=== PATIENT | female | born 1950 | race American Indian/Alaskan Native ===

== ENCOUNTER → 2016-12-29 | Outpatient (CLI) | payer MEDICARE, OTHER ==
[~2016-12-29] MED LIST: Iopamidol 755 MG/ML 500 ML Multipack Bottle IVPUSH STA
--- NOTE | 2016-12-31 09:32 | CT ---
CT of the abdomen and pelvis with and without contrast. HISTORY: Pain TECHNIQUE: Axial CT images were obtained of the abdomen and pelvis before and following administrati on of 100 mL of Isovue-370 in the right antecubital fossa without complication. Coronal and sagittal reconstructions obtained. FINDINGS: There is atelectasis/scarring within the lung bases. No pleural effusion. The liver, spleen, adrenal glands, and pancreas appear normal. There is no bulky retroperitoneal lym phadenopathy or abdominal ascites. The gallbladder appears normal. The kidneys enhance and function symmetrically without evidence of obstructive uropathy. The small bowel is normal in caliber without evidence of obstruction. There is focal colonic wall th ickening and stranding within the sigmoid colon with a few adjacent diverticula. Urinary bladder johnny ears normal. Appendectomy. No pelvic lymphadenopathy or free pelvic fluid. Mild degenerative changes within the lower lumbar spine. Suspicious osseous abnormalities. IMPRESSION: 1. Stranding and wall thickening involving the sigmoid colon, likely representing diverticulitis. Gi mary jo the degree of wall thickening relative to the adjacent stranding a neoplastic process is not exc luded, follow-up with a colonoscopy may be beneficial.
--- NOTE | 2016-12-31 15:57 | CT ---
EXAMINATION: CT soft tissue neck without contrast HISTORY: History of throat cancer COMPARISON: None TECHNIQUE: Axial CT images obtained through the neck without contrast. Coronal and sagittal reconstr uctions obtained. FINDINGS: The visualized mastoid air cells and paranasal sinuses are clear. The nasopharynx and orop harynx appear grossly symmetric. The hypopharynx appears unremarkable for noncontrast examination. T here is no bulky cervical lymphadenopathy. The parotid and submandibular glands are symmetric. The t hyroid gland appears unremarkable. No overt mass or asymmetry identified. Mild degenerative changes noted within the mid cervical spine. No suspicious osseous abnormalities. The lung apices are clear. IMPRESSION: No mass or asymmetry identified.
== END ==
LOC: MW.DI 15:18
PROVIDERS: ATTEND Family Medicine
DX: R10.9 Unspecified abdominal pain (principal); R07.0 Pain in throat; K63.89 Other specified diseases of intestine; Z80.8 Family history of malignant neoplasm of other organs or systems
CPT/HCPCS: 70490; 74178; Q9967

== ENCOUNTER 2017-02-13 06:23 | Day surgery (SDC) | payer MEDICARE, OTHER ==
[~2017-02-13 06:23] MED LIST changes: -Iopamidol 755 MG/ML 500 ML Multipack Bottle IVPUSH STA; +Lactated Ringers 1,000 ML IV SCH
--- NOTE | 2017-02-13 07:02 | PCM.PREANE ---
Preanesthetic Assessment - Anesthesia/Transfusion/Family Hx Anesthesia History: Prior Anesthesia Without Reaction Family History of Anesthesia Reaction: No Transfusion History: No Prior Transfusion(s) Intubation History: Unknown - Review of Systems General: No Symptoms Pulmonary: No Symptoms Cardiovascular: No Symptoms Gastrointestinal: Abdominal pain Neurological: No Symptoms Other: Reports: None - Physical Assessment O2 Sat by Pulse Oximetry: 97 Respiratory Rate: 16 Vital Signs: Last Vital Signs Temp 36.2 C 02/13/17 06:30 Pulse 90 02/13/17 06:30 Resp 16 02/13/17 06:30 BP 152/70 H 02/13/17 06:30 Pulse Ox 97 02/13/17 06:30 Height: 1.47 m Weight: 59.874 kg ASA Class: 3 Mental Status: Alert & Oriented x3 Airway Class: Mallampati = 2 Dentition: Reports: Partial (upper front- four teeth) Thyro-Mental Finger Breadths: 2 Mouth Opening Finger Breadths: 3 ROM/Head Extension: Full Lungs: Clear to auscultation, Normal respiratory effort Cardiovascular: Regular Rate, Regular Rhythm - Allergies Allergies/Adverse Reactions: Allergies Allergy/AdvReac Type Severity Reaction Status Date / Time adhesive tape Allergy Rash Verified 02/11/17 12:21 erythromycin base Allergy Anaphylactic Verified 02/11/17 12:21 Shock hydroxychloroquine Allergy Anaphylactic Verified 02/11/17 12:21 Shock lisinopril Allergy Cough Verified 02/11/17 12:21 - Blood Blood Available: No - Anesthesia Plan Pre-Op Medication Ordered: None - Acknowledgements Anesthesia Type Planned: MAC Pt an Appropriate Candidate for the Planned Anesthesia: Yes Alternatives and Risks of Anesthesia Discussed w Pt/Guardian: Yes Pt/Guardian Understands and Agrees with Anesthesia Plan: Yes PreAnesthesia Questionnaire HEENT History: Reports: Other (See Below) Other HEENT History: wears glasses, has top partial Cardiovascular History: Reports: Heart Failure (4-5 years ago, ok since), High Cholesterol, Hypertension, [place] (patient denies) Gastrointestinal History: Reports: GERD, Other (See Below) (h/o pancreatitis) 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: Musculoskeletal History: Reports: Back Pain, Chronic, RA Neurological History: Reports: Migraines, Other (See Below) (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)) Psychiatric History: Reports: Anxiety, Depression Endocrine/Metabolic History: Reports: Diabetes, Type II Other Endocrine/Metabolic History: diet controlled type II diabetes Oncologic (Cancer) History: Reports: Breast - Past Surgical History Head Surgeries/Procedures: Reports: None Female Surgical History: Reports: Breast Biopsy, Section (x3), Hysterectomy Other Female Surgeries/Procedures: hx exploratory laparotomy, exc lymph nodes left breast - SUBSTANCE USE Smoking Status *Q: Former Smoker (quit 27 years ago) Tobacco Use Within Last Twelve Months: No Recreational Drug Use History: No - HOME MEDS Home Medications: Home Meds Aspirin [[place] Aspirin] 81 mg PO DAILY 02/11/17 [History] Carvedilol 6.25 mg PO BID 02/11/17 [History] Estradiol [Vagifem] 20 mcg VAG ASDIRECTED 02/11/17 [History] Folic Acid 1 mg PO DAILY 02/11/17 [History] Furosemide 20 mg PO DAILY 02/11/17 [History] Leflunomide 20 mg PO DAILY 02/11/17 [History] Losartan [Cozaar] 25 mg PO DAILY 02/11/17 [History] Methotrexate 4 tab PO WEEKLY 02/11/17 [History] Multivitamin [Multivitamins] 1 tab PO DAILY 02/11/17 [History] Omeprazole 40 mg PO DAILY 02/11/17 [History] Pravastatin [Pravachol] 40 mg PO DAILY 02/11/17 [History] Sucralfate [Carafate] 10 ml PO TIDMEALS 02/11/17 [History] Venlafaxine HCl [Venlafaxine HCl ER] 150 mg PO DAILY 02/11/17 [History] Lisinopril 10 mg PO DAILY 02/12/17 [History] - CURRENT (IN HOUSE) MEDS Current Meds: Current Medications Lactated Ringer's (Ringers, Lactated) 1,000 mls @ 125 mls/hr IV ASDIRECTED [facility] Last Admin: 02/13/17 06:34 Dose: 125 mls/hr
[2017-02-13] MEDS ORDERED: Propofol 200 MG/20 ML SDV ONE ×2 (07:07→08:07)
[2017-02-13] MEDS ORDERED: Midazolam 1 MG/ML 2 ML SDV ONE (07:08)
[2017-02-13] MEDS ORDERED: fentaNYL 100 MCG/2 ML SDV ONE (07:08)
[2017-02-13] MEDS ORDERED: ePHEDrine 50 MG/ML SDV ONE (07:59)
[2017-02-13] MEDS ORDERED: Lactated Ringers 1,000 ML IV SCH (08:30)
--- NOTE | 2017-02-13 08:31 | PCM.OPNOTE ---
- General Post-Op/Procedure Note Date of Surgery/Procedure: 02/13/17 Operative Procedure(s): Esophagogastroduodenoscopy with biopsy. Colonoscopy with cold rectal polypectomy. Pre Op Diagnosis: Epigastric pain with progressive heartburn. Change in bowel habits with left-sided abdominal pain and abnormal CAT scan. Anesthesia Technique: MAC (ASA III) Primary Surgeon: Fernando Turk Condition: Good Free Text/Narrative:: Dictation [id number], and [id number] CPT [id number] & [id number]
--- NOTE | 2017-02-13 08:36 | PCM.POSTAN ---
POST ANESTHESIA ASSESSMENT - MENTAL STATUS Mental Status: alert, oriented - RESPIRATORY Respiratory Status: respiratory rate WNL, airway patent, O2 saturation stable - CARDIOVASCULAR CV Status: pulse rate WNL, blood pressure stable - GASTROINTESTINAL GI Status: no symptoms - POST OP HYDRATION Hydration Status: adequate & stable - OBSERVATIONS Free Text/Narrative:: no anesthesia problems
[2017-02-13 08:58] VITALS: BP 119/61
--- NOTE | 2017-02-13 14:20 | OR ---
SURGEON: Fernando Turk M.D. DATE OF PROCEDURE: 02/13/2017 OPERATION PERFORMED: Esophagogastroduodenoscopy with biopsy. ANESTHESIA: MAC. ASA CLASSIFICATION: III. PREOPERATIVE DIAGNOSIS: Epigastric pain with progressive heartburn. POSTOPERATIVE DIAGNOSIS: Gastritis. DESCRIPTION OF PROCEDURE: The patient was taken to the endoscopy room and positioned on the endoscopy table in the supine position. Time-out was called for appropriate identification of the patient and procedure. Bite-block was placed between the patient's teeth. Monitored anesthesia care was provided. The gastroscope was inserted into the mouth and advanced without difficulty through the esophagus and stomach into the duodenum, where examination was carried out in a retrograde fashion. The duodenum shows no acute inflammatory changes or ulcerations. The stomach does show [id number] gastritis. Antral biopsies were obtained to look for the presence of Helicobacter pylori. The gastroscope was retroflexed to visualize the proximal stomach. No tumors were seen and there were no ulcerations proximally. The gastroscope was then straightened and slowly withdrawn. The GE junction was well defined and shows no acute inflammatory changes, erosions, or ulcerations. The esophagus demonstrates fair contractility. As the scope was withdrawn, the vocal cords were visualized, noted to move symmetrically. No vocal cord lesions were identified. The gastroscope was then removed with the patient having tolerated this portion of the procedure well. Following colonoscopy, she was taken to recovery room in stable condition. JADIEL KAPLAN /[id number]
--- NOTE | 2017-02-13 14:22 | OR ---
SURGEON: Fernando Turk M.D. DATE OF PROCEDURE: 02/13/2017 OPERATION PERFORMED: Colonoscopy with cold rectal polypectomy. ANESTHESIA: MAC. ASA CLASSIFICATION: III. PREOPERATIVE DIAGNOSES: 1. Change in bowel habits. 2. Left upper quadrant pain. 3. Abnormal CT scan. POSTOPERATIVE DIAGNOSES: 1. Rectal polyp. 2. Pancolonic diverticulosis. DESCRIPTION OF PROCEDURE: With the patient having completed esophagogastroduodenoscopy, she was now positioned in the left lateral decubitus position. The colonoscope was inserted into the rectum and advanced with moderate difficulty through a tortuous sigmoid colon to the cecum. The cecum was identified by internal landmarks and external pressure. The colonoscope was retroflexed in the cecum to visualize the ascending colon from below. The colonoscope was then straightened and slowly withdrawn. Diverticular changes were noted throughout the entire length of the colon. The cecum, ascending colon, hepatic flexure, transverse colon, splenic flexure, descending colon, and sigmoid colon showed no tumors, polyps, angiodysplasia, or evidence of inflammatory bowel disease. One small polyp was identified in the rectum and removed with the cold biopsy forceps. The colonoscope was then retroflexed to visualize the anal orifice from above. Again, no tumors or polyps were seen and there were no acute hemorrhoidal changes. The colonoscope was then straightened, the rectum aspirated, and the colonoscope removed. The patient tolerated the procedure well and was taken to recovery room in stable condition. JADIEL KAPLAN /[id number]
== END 2017-02-13 08:59 | disposition home or self-care (01) ==
LOC: MW.SDS 06:23
PROVIDERS: ATTEND Surgery
PROC: 0DB68ZX Excision of Stomach, Via Natural or Artificial Opening Endoscopic, Diagnostic (ICD-10-PCS; principal; 2017-02-13)
PROC: 0DBP8ZZ Excision of Rectum, Via Natural or Artificial Opening Endoscopic (ICD-10-PCS; 2017-02-13)
DX: K29.50 Unspecified chronic gastritis without bleeding (principal); K62.1 Rectal polyp; K57.30 Diverticulosis of large intestine without perforation or abscess without bleeding; F41.9 Anxiety disorder, unspecified; M19.90 Unspecified osteoarthritis, unspecified site; I11.0 Hypertensive heart disease with heart failure; I50.9 Heart failure, unspecified; F32.9 Major depressive disorder, single episode, unspecified; K21.9 Gastro-esophageal reflux disease without esophagitis; E78.00 Pure hypercholesterolemia, unspecified; M06.9 Rheumatoid arthritis, unspecified; E11.9 Type 2 diabetes mellitus without complications; Z87.891 Personal history of nicotine dependence; Z88.1 Allergy status to other antibiotic agents; Z88.8 Allergy status to other drugs, medicaments and biological substances; Z91.048 Other nonmedicinal substance allergy status; Z79.82 Long term (current) use of aspirin; Z79.51 Long term (current) use of inhaled steroids; Z79.899 Other long term (current) drug therapy; Z90.710 Acquired absence of both cervix and uterus; Z98.890 Other specified postprocedural states
CPT/HCPCS: 43239; 45380; J2250; J3010; J7120; 00740; 88305; 88312; J2704

== ENCOUNTER 2018-10-06 07:09 | Day surgery (SDC) | payer MEDICARE, OTHER ==
[2018-10-06] MEDS ORDERED: Bupivacaine 0.25%/EPINEPHrine 1:200,000 10 ML SDV ONE ×2 (07:26→09:07)
[2018-10-06] MEDS ORDERED: ceFAZolin 2 GM in Premix Bag 1 BAG IV ONE (08:00)
[2018-10-06] MEDS ORDERED: traMADol 50 MG Tab PO PRN (08:00)
[2018-10-06] MEDS ORDERED: Bupivacaine 0.25%/EPINEPHrine 1:200,000 10 ML SDV INJECT ONE (08:00)
[2018-10-06] MEDS ORDERED: Lactated Ringers 1,000 ML IV SCH (08:00)
[2018-10-06] MEDS ORDERED: Lidocaine 2% 5 ML SDV ONE (08:16)
[2018-10-06] MEDS ORDERED: fentaNYL 100 MCG/2 ML SDV ONE (08:16)
[2018-10-06] MEDS ORDERED: Propofol 200 MG/20 ML SDV ONE (08:16)
[2018-10-06] MEDS ORDERED: Midazolam 1 MG/ML 2 ML SDV ONE (08:17)
--- NOTE | 2018-10-06 08:46 | PCM.PREANE ---
Preanesthetic Assessment - Anesthesia/Transfusion/Family Hx Anesthesia History: Prior Anesthesia Without Reaction Family History of Anesthesia Reaction: No Transfusion History: No Prior Transfusion(s) Intubation History: Unknown - Review of Systems General: No Symptoms Pulmonary: No Symptoms Cardiovascular: No Symptoms Gastrointestinal: No Symptoms Neurological: No Symptoms Other: Reports: None - Physical Assessment Height: 1.47 m Weight: 55.338 kg ASA Class: 3 Mental Status: Alert & Oriented x3 Airway Class: Mallampati = 2 Dentition: Reports: Normal Dentition, Partial (x3 teeth upper front) Thyro-Mental Finger Breadths: 3 Mouth Opening Finger Breadths: 2 ROM/Head Extension: Full Lungs: Clear to Auscultation, Normal Respiratory Effort Cardiovascular: Regular Rate, Regular Rhythm - Allergies Allergies/Adverse Reactions: Allergies Allergy/AdvReac Type Severity Reaction Status Date / Time adhesive tape Allergy Rash Verified 10/01/18 10:52 erythromycin base Allergy Anaphylactic Verified 10/01/18 10:52 Shock hydroxychloroquine Allergy Anaphylactic Verified 10/01/18 10:52 Shock lisinopril Allergy Cough Verified 10/01/18 10:52 - Blood Blood Available: No - Anesthesia Plan Pre-Op Medication Ordered: None - Acknowledgements Anesthesia Type Planned: MAC Pt an Appropriate Candidate for the Planned Anesthesia: Yes Alternatives and Risks of Anesthesia Discussed w Pt/Guardian: Yes Pt/Guardian Understands and Agrees with Anesthesia Plan: Yes PreAnesthesia Questionnaire HEENT History: Reports: Allergic Rhinitis, Cataract, Other (See Below) (h/o meningeoma) Other HEENT History: wears glasses, has upper partial removable denture Cardiovascular History: Reports: Heart Failure (2 years ago, controlled with medications, walks easily 2 blocks), High Cholesterol, Hypertension Gastrointestinal History: Reports: Colon Polyp, Diverticulosis, GERD, Pancreatitis, Other (See Below) Other Gastrointestinal History: currently no symptoms, has stopped Omeprazole Genitourinary History: Reports: None 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: Musculoskeletal History: Reports: Gout, Osteoarthritis Neurological History: Reports: Concussion, Other (See Below) (daily headaches) Psychiatric History: Reports: Anxiety, Depression Endocrine/Metabolic History: Reports: Diabetes, Type II Other Endocrine/Metabolic History: diabetes is diet controlled- no meds Oncologic (Cancer) History: Reports: Breast - Past Surgical History Head Surgeries/Procedures: Reports: Other (See Below) (gamma knife for intracranial meningeoma) HEENT Surgical History: Reports: Cataract Surgery GI Surgical History: Reports: Appendectomy, Other (See Below) Other GI Surgeries/Procedures: Exploratory laparotomy for "tumors" Female Surgical History: Reports: Breast Biopsy, Section, Hysterectomy, Salpingo-Oophorectomy Other Female Surgeries/Procedures: left breast lumpectomy for malignancy- lymph nodes removed Oncologic Surgical History: Reports: Lumpectomy Other Oncologic Surgeries/Procedures: Lymph Node Disection with Chemo - SUBSTANCE USE Smoking Status *Q: Former Smoker Tobacco Use Within Last Twelve Months: No Recreational Drug Use History: No - HOME MEDS Home Medications: Home Meds Aspirin [[place] Aspirin EC] 81 mg PO DAILY 02/11/17 [History] Carvedilol 6.25 mg PO BID 02/11/17 [History] Estradiol [Vagifem] 10 mcg VAG ASDIRECTED 02/11/17 [History] Folic Acid 1 mg PO DAILY 02/11/17 [History] Leflunomide 20 mg PO DAILY 02/11/17 [History] Losartan [Cozaar] 25 mg PO QAM 02/11/17 [History] Methotrexate 1 tab PO WEEKLY 02/11/17 [History] Multivitamin [Multivitamins] 1 tab PO DAILY 02/11/17 [History] Pravastatin [Pravachol] 40 mg PO DAILY 02/11/17 [History] Sucralfate [Carafate] 10 ml PO TIDMEALS 02/11/17 [History] - CURRENT (IN HOUSE) MEDS Current Meds: Current Medications Lactated Ringer's (Ringers, Lactated) 1,000 mls @ 125 mls/hr IV ASDIRECTED BENNIE Tramadol HCl (Ultram) 50 mg PO Q4H PRN PRN Reason: Pain Discontinued Medications Bupivacaine HCl/Epinephrine Bitart (Marcaine 0.25%/Epinephrine 1:200,000) 10 ml INJECT ONETIME ONE Stop: 10/06/18 08:01 Bupivacaine HCl/Epinephrine Bitart (Marcaine 0.25%/Epinephrine 1:200,000) Confirm Administered Dose 10 ml .ROUTE .STK-MED ONE Stop: 10/06/18 07:27 Fentanyl (Sublimaze) Confirm Administered Dose 100 mcg .ROUTE .STK-MED ONE Stop: 10/06/18 08:17 Cefazolin Sodium/Dextrose 2 gm (/ Premix) 50 mls @ 100 mls/hr IV ONETIME ONE Stop: 10/06/18 08:29 Lidocaine (Xylocaine-Mpf 2%) Confirm Administered Dose 5 ml .ROUTE .STK-MED ONE Stop: 10/06/18 08:17 Midazolam HCl (Versed 1 Mg/Ml) Confirm Administered Dose 2 mg .ROUTE .STK-MED ONE Stop: 10/06/18 08:18 Propofol (Diprivan 20 Ml) Confirm Administered Dose 400 mg .ROUTE .STK-MED ONE Stop: 10/06/18 08:17
[2018-10-06] MEDS ORDERED: Glycopyrrolate 0.2 MG/ML SDV ONE (09:31)
[2018-10-06 11:07] VITALS: BP 159/75
--- NOTE | 2018-10-06 11:16 | PCM.POSTAN ---
POST ANESTHESIA ASSESSMENT - MENTAL STATUS Mental Status: Alert, Oriented - RESPIRATORY Respiratory Status: Respiratory Rate WNL, Airway Patent, O2 Saturation Stable - CARDIOVASCULAR CV Status: Pulse Rate WNL, Blood Pressure Stable - GASTROINTESTINAL GI Status: No Symptoms - PAIN Pain Score: 0 - POST OP HYDRATION Hydration Status: Adequate & Stable - OBSERVATIONS Free Text/Narrative:: no anesthesia problems, patient skipped recovery room stage of postoperative care
--- NOTE | 2018-10-06 11:17 | PCM48HPAN ---
Post Anesthesia Note - EVALUATION WITHIN 48HRS OF ANESTHETIC Vital Signs in Normal Range: Yes Patient Participated in Evaluation: Yes Respiratory Function Stable: Yes Airway Patent: Yes Cardiovascular Function Stable: Yes Hydration Status Stable: Yes Pain Control Satisfactory: Yes Nausea and Vomiting Control Satisfactory: Yes Mental Status Recovered: Yes Resp Rate: 13 - COMMENTS/OBSERVATIONS Free Text/Narrative:: no anesthesia problems
--- NOTE | 2018-10-13 15:51 | PCM.OPNOTE ---
- General Post-Op/Procedure Note Date of Surgery/Procedure: 10/06/18 Operative Procedure(s): excision of left small finger dupuytrens contracture - finger and palm Pre Op Diagnosis: dupuytrens hand - left small finger/palm Post-Op Diagnosis: Same Anesthesia Technique: Local, MAC Primary Surgeon: Dulce Mandujano Clinical Supervisor: Vandana Luna Reason Clinical Supervisor Was Necessary: retraction, prepping draping and closure assistance. Complications: None Condition: Good Free Text/Narrative:: [id number]
--- NOTE | 2018-10-13 16:33 | OR ---
SURGEON: CASSIDY MARTE MD DATE OF PROCEDURE: 10/06/2018 PREOPERATIVE DIAGNOSIS: Left small finger and palm Dupuytren contracture. POSTOPERATIVE DIAGNOSIS: Left small finger and palm Dupuytren contracture. PROCEDURE: Excision of left small finger palm Dupuytren contracture. HELPER METAL HANGING: VICKY Burdick ANESTHESIA: Local MAC. INDICATIONS: Ms. Mcclain is a 67-year-old female with left small finger and palm Dupuytren's. Risks and benefits of excision of this were discussed with her including, but not limited to, bleeding, infection, damage to underlying or overlying structures, possible need for future interventions, and possible scarring. PROCEDURE IN DETAIL: After informed consent was obtained and placed on the chart, the patient was brought to the operating theater and laid in supine position. After adequate local MAC anesthesia was obtained, the area was prepped and draped, and a time- out was completed to confirm side and site. Attention was then paid to excision of Dupuytren cord including a Ashlie type incision of the palm and extending onto the digit. Dissection was carried through skin and down circumferentially around the cord under direct visualization. Neurovascular bundles were directly visualized and protected during this time. The cord was removed and sent for pathology. Once adequately removed, tourniquet was deflated. Hemostasis was obtained and the wound was then closed using 5-0 stitch in a horizontal mattress fashion. The wound was dressed with Xeroform fluffs, and a Kerlix gauze dressing, and a 2-inch Gene wrap. The patient tolerated this well. All counts and needles were correct at the end of the case. FOLLOWUP INSTRUCTIONS: The patient will see us in 10 to 14 days for suture removal, sooner if any problems, questions, or concerns. ANDREW / EUSEBIO /[id number]
== END 2018-10-06 11:05 | disposition home or self-care (01) ==
LOC: MW.SDS 07:09
PROVIDERS: ATTEND Plastic Surgery
DX: M72.0 Palmar fascial fibromatosis [Dupuytren] (principal); I11.0 Hypertensive heart disease with heart failure; I50.9 Heart failure, unspecified; E11.9 Type 2 diabetes mellitus without complications; F41.9 Anxiety disorder, unspecified; F32.9 Major depressive disorder, single episode, unspecified; K57.90 Diverticulosis of intestine, part unspecified, without perforation or abscess without bleeding; K21.9 Gastro-esophageal reflux disease without esophagitis; E78.00 Pure hypercholesterolemia, unspecified; Z87.891 Personal history of nicotine dependence; Z79.82 Long term (current) use of aspirin; Z79.899 Other long term (current) drug therapy; Z88.1 Allergy status to other antibiotic agents; Z88.8 Allergy status to other drugs, medicaments and biological substances; Z91.048 Other nonmedicinal substance allergy status
CPT/HCPCS: 26123; 88304; J2001; J2250; J2704; J3010; J3490; J7120; 01810

== ENCOUNTER 2020-12-28 11:30 | Inpatient (IN) | payer MEDICARE, OTHER ==
[2020-12-28] MEDS ORDERED: Sodium Chloride 0.9% 10 ML Syringe FLUSH PRN (11:47)
[2020-12-28] MEDS ORDERED: Sodium Chloride 0.9% 2.5 ML Syringe FLUSH PRN ×2 (11:47→16:23)
--- NOTE | 2020-12-28 11:51 | EDM.PDOC ---
ED HPI GENERAL MEDICAL PROBLEM - General Chief Complaint: Respiratory Problem Stated Complaint: SHORT OF BREATH Time Seen by Provider: 12/28/20 11:40 - History of Present Illness INITIAL COMMENTS - FREE TEXT/NARRATIVE: 70-year-old female history of CHF in the past history of very mild COPD and is a former smoker. She is presenting with dyspnea that worsens with exertion starting yesterday. Is associated with profound lightheadedness and near syncope but no actual syncope. Patient has no chest pain either at rest or with exertion. She has no PND and no orthopnea no lower extremity swelling no leg pain. Patient feels dyspneic at rest as well. - Related Data Allergies Allergy/AdvReac Type Severity Reaction Status Date / Time adhesive tape Allergy Rash Verified 12/28/20 11:50 erythromycin base Allergy Anaphylactic Verified 12/28/20 11:50 Shock hydroxychloroquine Allergy Anaphylactic Verified 12/28/20 11:50 Shock lisinopril Allergy Cough Verified 12/28/20 11:50 Home Meds: Home Meds Methotrexate 7.5 mg PO WEEKLY 02/11/17 [History] Ascorbic Acid [C-1000] 1,000 mg PO DAILY 12/28/20 [History] Cholecalciferol (Vitamin D3) [Vitamin D3] 25 mcg PO DAILY 12/28/20 [History] Diclofenac Sodium [Voltaren] 4 gm TOP TID 12/28/20 [History] Ferrous Sulfate 325 mg PO BID 12/28/20 [History] Folic Acid 1 mg PO DAILY 12/28/20 [History] Furosemide 40 mg PO DAILY 12/28/20 [History] Losartan [Cozaar] 50 mg PO BEDTIME 12/28/20 [History] Multivitamin 1 tab PO DAILY 12/28/20 [History] Omeprazole 20 mg PO DAILY PRN 12/28/20 [History] Potassium Chloride 8 meq PO BID 12/28/20 [History] Tofacitinib Citrate [Xeljanz] 5 mg PO BID 12/28/20 [History] Topiramate 25 mg PO BID 12/28/20 [History] Venlafaxine HCl [Venlafaxine ER] 150 mg PO DAILY 12/28/20 [History] atorvaSTATin [Lipitor] 80 mg PO DAILY 12/28/20 [History] carvediloL [Carvedilol] 6.25 mg PO BID 12/28/20 [History] predniSONE [Prednisone] 20 mg PO WEEKLY 12/28/20 [History] Past Medical History HEENT History: Reports: Allergic Rhinitis, Cataract, Other (See Below) (h/o meningeoma) Other HEENT History: wears glasses, has upper partial removable denture Cardiovascular History: Reports: Heart Failure (2 years ago, controlled with medications, walks easily 2 blocks), High Cholesterol, Hypertension Gastrointestinal History: Reports: Colon Polyp, Diverticulosis, GERD, Pancreatitis, Other (See Below) Other Gastrointestinal History: currently no symptoms, has stopped Omeprazole Genitourinary History: Reports: None CLIENT SUPPORT ASSOCIATE History: Reports: Musculoskeletal History: Reports: Gout, Osteoarthritis Neurological History: Reports: Concussion, Other (See Below) (daily headaches) Psychiatric History: Reports: Anxiety, Depression Endocrine/Metabolic History: Reports: Diabetes, Type II Other Endocrine/Metabolic History: diabetes is diet controlled- no meds Oncologic (Cancer) History: Reports: Breast - Past Surgical History Head Surgeries/Procedures: Reports: Other (See Below) (gamma knife for intracranial meningeoma) HEENT Surgical History: Reports: Cataract Surgery GI Surgical History: Reports: Appendectomy, Other (See Below) Other GI Surgeries/Procedures: Exploratory laparotomy for "tumors" Female Surgical History: Reports: Breast Biopsy, Section, Hysterectomy, Salpingo-Oophorectomy Other Female Surgeries/Procedures: left breast lumpectomy for malignancy- lymph nodes removed Oncologic Surgical History: Reports: Lumpectomy Other Oncologic Surgeries/Procedures: Lymph Node Disection with Chemo ED ROS GENERAL - Review of Systems Review Of Systems: See Below Free Text/Narrative/Comment: General: No fever. Skin: No rash. Eyes: No vision problems. ENT: No sore throat. Neck: No neck stiffness. Respiratory: Per HPI Cardiac: No chest pain. Gastrointestinal: No nausea, vomiting or abdominal pain. Urinary: No dysuria. Musculoskeletal: No myalgias/arthralgias. Neurologic: No headache. ED EXAM, GENERAL - Physical Exam Exam: See Below Free Text/Narrative:: General Appearance: No acute distress, appears comfortable Skin: No rash HEENT: Normocephalic/atraumatic, sclera anicteric, mucous membranes moist Neck: Normal range of motion Chest and Lungs: Bilateral breath sounds, minimal crackles at the bilateral bases no rhonchi no wheezing normal work of breathing Cardiovascular: Regular rate and rhythm, no murmur Abdomen: Soft, non-tender Back: Normal Musculoskeletal: No edema or tenderness Neurologic: Awake, alert, no obvious deficits, moving all extremities Psychiatric: Appropriate, cooperative #1 Interpretation EKG Date: 12/28/20 Time: 11:40 EKG Interpretation Comments: Normal sinus rhythm rate of 88 normal axis and intervals no acute ischemia QTC 443 normal EKG Course - Vital Signs Last Recorded V/S: Last Vital Signs Temp 96.2 F L 12/28/20 11:40 Pulse 86 12/28/20 13:15 Resp 17 12/28/20 13:15 BP 117/63 12/28/20 13:15 Pulse Ox 98 12/28/20 13:15 - Orders/Labs/Meds Orders: Active Orders 24 hr Category Date Time Status Patient Status [ADT] Routine ADT 12/28/20 14:45 Active RT Aerosol Therapy [RC] ASDIRECTED Care 12/28/20 13:03 Active FACTOR V LEIDEN MUTATION [REF] Stat Lab 12/28/20 14:46 Ordered PROTEIN C ANTIGEN [REF] Stat Lab 12/28/20 14:46 Ordered PROTEIN C-FUNCTIONAL [REF] Stat Lab 12/28/20 14:46 Ordered PROTEIN S-ANTIGEN [REF] Stat Lab 12/28/20 14:46 Ordered PROTEIN S-FUNCTIONAL [REF] Stat Lab 12/28/20 14:46 Ordered PTT,PARTIAL THROMBOPLSTIN TIME [COAG] Q6H Lab 12/28/20 20:45 Ordered PTT,PARTIAL THROMBOPLSTIN TIME [COAG] Q6H Lab 12/29/20 02:45 Ordered PTT,PARTIAL THROMBOPLSTIN TIME [COAG] Q6H Lab 12/29/20 08:45 Ordered PTT,PARTIAL THROMBOPLSTIN TIME [COAG] Q6H Lab 12/29/20 14:45 Ordered PTT,PARTIAL THROMBOPLSTIN TIME [COAG] Q6H Lab 12/29/20 20:45 Ordered PTT,PARTIAL THROMBOPLSTIN TIME [COAG] Q6 Lab 12/30/20 02:45 Ordered Heparin Sodium/0.45% NaCl [Heparin 25,000 Units in 1/2 Med 12/28/20 14:45 Active NS 500 ML] 500 ml IV TITRATE Sodium Chloride 0.9% [Saline Flush] Med 12/28/20 11:47 Active 10 ml FLUSH ASDIRECTED PRN Sodium Chloride 0.9% [Saline Flush] Med 12/28/20 11:47 Active 2.5 ml FLUSH ASDIRECTED PRN Saline Lock Insert [OM.PC] Stat Oth 12/28/20 11:47 Ordered Medication Orders Heparin Sodium/Sodium Chloride (Heparin 25,000 Units In 1/2 Ns 500 Ml) 500 mls @ 21.228 mls/hr IV TITRATE BENNIE; Protocol Sodium Chloride (Sodium Chloride 0.9% 10 Ml Syringe) 10 ml FLUSH ASDIRECTED PRN PRN Reason: Keep Vein Open Last Admin: 12/28/20 12:03 Dose: 10 ml Documented by: GEO Sodium Chloride (Sodium Chloride 0.9% 2.5 Ml Syringe) 2.5 ml FLUSH ASDIRECTED PRN PRN Reason: Keep Vein Open Last Admin: 12/28/20 12:03 Dose: 2.5 ml Documented by: GEO Labs: Laboratory Tests 12/28/20 12/28/20 12/28/20 Range/Units 11:36 11:36 11:36 WBC 6.94 (4.0-11.0) K/uL RBC 3.60 L (4.30-5.90) M/uL Hgb 12.7 (12.0-16.0) g/dL Hct 36.7 (36.0-46.0) % MCV 101.9 H (80.0-98.0) fL MCH 35.3 H (27.0-32.0) pg MCHC 34.6 (31.0-37.0) g/dL RDW Std Deviation 56.3 (28.0-62.0) fl RDW Coeff of Carolyn 15 (11.0-15.0) % Plt Count 216 (150-400) K/uL MPV 10.30 (7.40-12.00) fL Neut % (Auto) 69.2 (48.0-80.0) % Lymph % (Auto) 20.9 (16.0-40.0) % [place] % (Auto) 8.1 (0.0-15.0) % Eos % (Auto) 1.7 (0.0-7.0) % Baso % (Auto) 0.1 (0.0-1.5) % Neut # (Auto) 4.8 (1.4-5.7) K/uL Lymph # (Auto) 1.5 (0.6-2.4) K/uL [place] # (Auto) 0.6 (0.0-0.8) K/uL Eos # (Auto) 0.1 (0.0-0.7) K/uL Baso # (Auto) 0.0 (0.0-0.1) K/uL Nucleated RBC % 0.0 /100WBC Nucleated RBCs # 0 K/uL D-Dimer, Quantitative 7.42 H (0.0-0.50) mg/L FEU Sodium 140 (136-145) mmol/L Potassium 3.9 (3.5-5.1) mmol/L Chloride 102 (98-107) mmol/L Carbon Dioxide 24.8 (21.0-32.0) mmol/L BUN 25 H (7.0-18.0) mg/dL Creatinine 1.1 H (0.6-1.0) mg/dL Est Cr Clr Drug Dosing 33.69 mL/min Estimated GFR (MDRD) 49.0 ml/min Glucose 127 H (74-106) mg/dL Calcium 9.0 (8.5-10.1) mg/dL Total Bilirubin 1.2 H (0.2-1.0) mg/dL AST 16 (15-37) IU/L ALT 27 (14-63) IU/L Alkaline Phosphatase 75 (46-116) U/L Lactate Dehydrogenase (81-234) U/L Troponin I < 0.050 (0.000-0.056) ng/mL B-Natriuretic Peptide (<100) PG/ML Total Protein 8.0 (6.4-8.2) g/dL Albumin 4.0 (3.4-5.0) g/dL Globulin 4.0 (2.6-4.0) g/dL Albumin/Globulin Ratio 1.0 (0.9-1.6) 12/28/20 12/28/20 Range/Units 11:36 14:42 WBC (4.0-11.0) K/uL RBC (4.30-5.90) M/uL Hgb (12.0-16.0) g/dL Hct (36.0-46.0) % MCV (80.0-98.0) fL MCH (27.0-32.0) pg MCHC (31.0-37.0) g/dL RDW Std Deviation (28.0-62.0) fl RDW Coeff of Carolyn (11.0-15.0) % Plt Count (150-400) K/uL MPV (7.40-12.00) fL Neut % (Auto) (48.0-80.0) % Lymph % (Auto) (16.0-40.0) % [place] % (Auto) (0.0-15.0) % Eos % (Auto) (0.0-7.0) % Baso % (Auto) (0.0-1.5) % Neut # (Auto) (1.4-5.7) K/uL Lymph # (Auto) (0.6-2.4) K/uL [place] # (Auto) (0.0-0.8) K/uL Eos # (Auto) (0.0-0.7) K/uL Baso # (Auto) (0.0-0.1) K/uL Nucleated RBC % /100WBC Nucleated RBCs # K/uL D-Dimer, Quantitative (0.0-0.50) mg/L FEU Sodium (136-145) mmol/L Potassium (3.5-5.1) mmol/L Chloride (98-107) mmol/L Carbon Dioxide (21.0-32.0) mmol/L BUN (7.0-18.0) mg/dL Creatinine (0.6-1.0) mg/dL Est Cr Clr Drug Dosing mL/min Estimated GFR (MDRD) ml/min Glucose (74-106) mg/dL Calcium (8.5-10.1) mg/dL Total Bilirubin (0.2-1.0) mg/dL AST (15-37) IU/L ALT (14-63) IU/L Alkaline Phosphatase (46-116) U/L Lactate Dehydrogenase 391 H (81-234) U/L Troponin I (0.000-0.056) ng/mL B-Natriuretic Peptide 45 (<100) PG/ML Total Protein (6.4-8.2) g/dL Albumin (3.4-5.0) g/dL Globulin (2.6-4.0) g/dL Albumin/Globulin Ratio (0.9-1.6) Meds: Medications Generic Name Dose Route Start Last Admin Trade Name Freq PRN Reason Stop Dose Admin Heparin Sodium/Sodium Chloride 500 mls @ 21.228 mls/hr 12/28/20 14:45 Heparin 25,000 Units In 1/2 Ns 500 Ml IV TITRATE BENNIE Protocol 18 UNITS/KG/HR Sodium Chloride 10 ml 12/28/20 11:47 12/28/20 12:03 Sodium Chloride 0.9% 10 Ml Syringe FLUSH 10 ml ASDIRECTED PRN Administration Keep Vein Open Sodium Chloride 2.5 ml 12/28/20 11:47 12/28/20 12:03 Sodium Chloride 0.9% 2.5 Ml Syringe FLUSH 2.5 ml ASDIRECTED PRN Administration Keep Vein Open Discontinued Medications Generic Name Dose Route Start Last Admin Trade Name Freq PRN Reason Stop Dose Admin Albuterol/Ipratropium 3 ml 12/28/20 13:03 12/28/20 13:14 Albuterol/Ipratropium 3.0-0.5 Mg/3 Ml Neb Soln NEB 12/28/20 13:04 3 ml ONETIME ONE Administration Iopamidol 68 ml 12/28/20 13:54 12/28/20 13:56 Iopamidol 755 Mg/Ml 500 Ml Multipack Bottle IVPUSH 12/28/20 13:55 68 ml ONETIME ONE Administration Departure - Departure Time of Disposition: 14:59 Disposition: Admitted As Inpatient 65 Clinical Impression: Pulmonary embolism - Discharge Information *PRESCRIPTION DRUG MONITORING PROGRAM REVIEWED*: Not Applicable *COPY OF PRESCRIPTION DRUG MONITORING REPORT IN PATIENT WHIT: Not Applicable Referrals: PCP,None [Primary Care Provider] - Forms: ED Department Discharge Sepsis Event Note (ED) - Focused Exam Vital Signs: Vital Signs Temp Pulse Resp BP Pulse Ox 12/28/20 13:15 86 17 117/63 98 12/28/20 12:45 76 17 125/62 97 12/28/20 12:00 85 17 144/69 H 99 12/28/20 11:40 96.2 F L 88 19 157/84 H 98 - My Orders Last 24 Hours: My Active Orders 12/28/20 11:47 Sodium Chloride 0.9% [Saline Flush] 10 ml FLUSH ASDIRECTED PRN Sodium Chloride 0.9% [Saline Flush] 2.5 ml FLUSH ASDIRECTED PRN Saline Lock Insert [OM.PC] Stat 12/28/20 13:03 RT Aerosol Therapy [RC] ASDIRECTED 12/28/20 14:45 Patient Status [ADT] Routine Heparin Sodium/0.45% NaCl [Heparin 25,000 Units in 1/2 NS 500 ML] 500 ml IV TITRATE 12/28/20 14:46 FACTOR V LEIDEN MUTATION [REF] Stat PROTEIN C ANTIGEN [REF] Stat PROTEIN C-FUNCTIONAL [REF] Stat PROTEIN S-ANTIGEN [REF] Stat PROTEIN S-FUNCTIONAL [REF] Stat 12/28/20 20:45 PTT,PARTIAL THROMBOPLSTIN TIME [COAG] Q6H 12/29/20 02:45 PTT,PARTIAL THROMBOPLSTIN TIME [COAG] Q6H 12/29/20 08:45 PTT,PARTIAL THROMBOPLSTIN TIME [COAG] Q6H 12/29/20 14:45 PTT,PARTIAL THROMBOPLSTIN TIME [COAG] Q6H 12/29/20 20:45 PTT,PARTIAL THROMBOPLSTIN TIME [COAG] Q6H 12/30/20 02:45 PTT,PARTIAL THROMBOPLSTIN TIME [COAG] Q6H - Assessment/Plan Last 24 Hours: My Active Orders 12/28/20 11:47 Sodium Chloride 0.9% [Saline Flush] 10 ml FLUSH ASDIRECTED PRN Sodium Chloride 0.9% [Saline Flush] 2.5 ml FLUSH ASDIRECTED PRN Saline Lock Insert [OM.PC] Stat 12/28/20 13:03 RT Aerosol Therapy [RC] ASDIRECTED 12/28/20 14:45 Patient Status [ADT] Routine Heparin Sodium/0.45% NaCl [Heparin 25,000 Units in 1/2 NS 500 ML] 500 ml IV TITRATE 12/28/20 14:46 FACTOR V LEIDEN MUTATION [REF] Stat PROTEIN C ANTIGEN [REF] Stat PROTEIN C-FUNCTIONAL [REF] Stat PROTEIN S-ANTIGEN [REF] Stat PROTEIN S-FUNCTIONAL [REF] Stat 12/28/20 20:45 PTT,PARTIAL THROMBOPLSTIN TIME [COAG] Q6H 12/29/20 02:45 PTT,PARTIAL THROMBOPLSTIN TIME [COAG] Q6H 12/29/20 08:45 PTT,PARTIAL THROMBOPLSTIN TIME [COAG] Q6H 12/29/20 14:45 PTT,PARTIAL THROMBOPLSTIN TIME [COAG] Q6H 12/29/20 20:45 PTT,PARTIAL THROMBOPLSTIN TIME [COAG] Q6H 12/30/20 02:45 PTT,PARTIAL THROMBOPLSTIN TIME [COAG] Q6H Assessment:: 70-year-old female presenting with dyspnea on exertion. CHF carefully considered as possible though there is a minimal crackles on exam and certainly no lower extremity edema. Pneumonia considered as well but no cough no fever. Given pulmonary exam PE needs to be considered as well and D-dimer is pending. ACS felt unlikely she has no chest pain either at rest or with exertion her EKG is completely normal. That said troponin is pending. Patient's vital signs at this time are good final disposition further evaluation testing is pending results of initial test. 1300: Labs without significant sign of CHF. Chest x-ray with pneumonia. Repeat pulmonary exam no significant wheezing. However, will await D-dimer result will perform therapeutic trial with DuoNeb. 1315: D-Dimer markedly abnormal, will add CTPA. 1500: CT with bilateral PEs without signs of right heart strain. Pt discussed with Dr. Jain, hypercoaguable labs added and will admit as an inpatient on a heparin gtt.
[2020-12-28 12:18] LABS: BLOOD UREA NITROGEN,BUN 25 mg/dL (7.0-18.0); CARBON DIOXIDE,CO2 24.8 mmol/L (21.0-32.0); CHLORIDE,CL 102 mmol/L (98-107); GLUCOSE RANDOM 127 mg/dL (74-106); POTASSIUM,K 3.9 mmol/L (3.5-5.1); SODIUM,NA 140 mmol/L (136-145)
--- NOTE | 2020-12-28 12:51 | CR ---
INDICATION: Shortness of breath TECHNIQUE: Chest 2 views COMPARISON: 06/11/2013 FINDINGS: Cardiovascular and mediastinum: Heart size and vasculature are normal in caliber and appearance. Lungs and pleural spaces: Lungs are clear. No sign of infiltrate or mass. No sign of pleural effusion. No pneumothorax. Bones and soft tissues: No significant findings. IMPRESSION: No acute findings and no significant changes from the prior exam. Dictated by Cesar Earl MD @ 12/28/2020 12:50:[address] Cesar Earl @ Dec 28 2020 12:50PM
[2020-12-28] MEDS ORDERED: Albuterol/Ipratropium 3.0-0.5 MG/3 ML Neb Soln NEB ONE (13:03)
[2020-12-28] MEDS ORDERED: Iopamidol 755 MG/ML 500 ML Multipack Bottle IVPUSH ONE (13:54)
--- NOTE | 2020-12-28 14:29 | CT ---
INDICATION: Elevated D-dimer, dyspnea TECHNIQUE: CT chest pulmonary angiogram acquired with IV contrast. 60 cc Isovue 370 COMPARISON: None FINDINGS: Cardiovascular structures: Pulmonary emboli involving 1st and 2nd order branches to the right and left lower lobes and right upper lobe. Heart size is normal. No sign of aneurysm or dissection in the thoracic aorta. Mediastinum and krunal: No mass or adenopathy. Lungs: Clear. Pleura and pericardium: No effusions. Chest wall and axilla: No mass or adenopathy. Bones: No significant findings. Upper abdomen: Unremarkable. IMPRESSION: Pulmonary emboli involving 1st and 2nd order branches of the right and left lower lobes and right upper lobe. Please note that all CT scans at this facility use dose modulation, iterative reconstruction, and/or weight-based dosing when appropriate to reduce radiation dose to as low as reasonably achievable. Dictated by Darrel Vega MD @ 12/28/2020 2:28:[address] Darrel Vega @ Dec 28 2020 2:28PM
[2020-12-28] MEDS ORDERED: Heparin Sodium 5,000 Units/ML Vial IVPUSH ONE (15:19)
[2020-12-28] MEDS: Heparin Sodium/0.45% NaCl 500 ML IV SCH (15:43)
[2020-12-28] MEDS ORDERED: Ondansetron 4 MG/2 ML SDV IVPUSH PRN (16:23)
[2020-12-28] MEDS ORDERED: Acetaminophen 325 MG Tab PO PRN (16:23)
[2020-12-28] MEDS ORDERED: Omeprazole 20 MG Cap.CR PO PRN (16:26)
--- NOTE | 2020-12-28 16:27 | PCM.HP.2 ---
H&P History of Present Illness - General Date of Service: 12/28/20 Admit Problem/Dx: Admission Diagnosis/Problem Admission Diagnosis/Problem PE, Pulmonary embolism Source of Information: Patient History Limitations: Reports: No Limitations - History of Present Illness Initial Comments - Free Text/Narative: HTN this 70-year-old female with past medical history of CHF HLD HTN, COPD, DM type II, GERD history of breast cancer in remission x20 years, presented to the ER with complaints of shortness of breath that worsened with exertion that was started yesterday. She reports that she started feeling slightly short of breath a few days ago but yesterday it worsened significantly and then today she felt even worse. She reports it is associated with lightheadedness and near syncopal episodes but no actual syncope. She denies any chest pain at rest or with exertion. She denies any orthopnea or lower extremity swelling and denies any leg pain. She reports she is short of breath at rest. She denies any fevers chills or recent acute illnesses. She reports she got vaccinated for Covid finishing her second dose of Moderna 3 to 4 weeks ago. She denies ever having Covid. She reports that she has been remission from cancer, breast, for over 20 years and follows only with her PCP now. She denies any long travel. She did go to [place] for a cardiology appointment 3 to 4 weeks ago. Denies any acute trauma. She denies any personal or family history of clotting disorders. She denies current tobacco use, quit over 20 years ago. She denies any recreational drug use. She does drink 2 drinks per week. In the ER EKG obtained showing sinus rhythm rate of 88 with no acute ischemic changes. Laboratory studies reveal otherwise normal CBC. D-dimer quite theo vated at 7.42. BUN 25 creatinine 1.1. Glucose 127. Total bilirubin 1.2 AST ALT and alk phos all within normal limits troponin negative at 0.05 Covid swab negative. LDH elevated at 391. Chest x-ray obtained revealed no acute findings and no significant changes from prior exams. Due to elevated D-dimer CT angio of the chest was obtained which reveals pulmonary emboli involving first of second order branches to the right and left lower lobes and right upper lobe heart size is normal no sign of aneurysm or dissection of the thoracic aorta. Patient was given heparin bolus IV along with starting on heparin drip for acute PEs. Vital signs in the ER showed no tachycardia blood pressure initially elevated at 157/84 but had returned to normal at 117/63. Heart rate 88 patient oxygen saturation 98% on room air. Patient will be admitted inpatient for acute pulmonary embolism. PCP Dr. Harvey - Related Data Allergies/Adverse Reactions: Allergies Allergy/AdvReac Type Severity Reaction Status Date / Time adhesive tape Allergy Rash Verified 12/28/20 11:50 erythromycin base Allergy Anaphylactic Verified 12/28/20 11:50 Shock hydroxychloroquine Allergy Anaphylactic Verified 12/28/20 11:50 Shock lisinopril Allergy Cough Verified 12/28/20 11:50 Home Medications: Home Meds Methotrexate 7.5 mg PO WEEKLY 02/11/17 [History] Ascorbic Acid [C-1000] 1,000 mg PO DAILY 12/28/20 [History] Cholecalciferol (Vitamin D3) [Vitamin D3] 25 mcg PO DAILY 12/28/20 [History] Diclofenac Sodium [Voltaren] 4 gm TOP TID 12/28/20 [History] Ferrous Sulfate 325 mg PO BID 12/28/20 [History] Folic Acid 1 mg PO DAILY 12/28/20 [History] Furosemide 40 mg PO DAILY 12/28/20 [History] Losartan [Cozaar] 50 mg PO BEDTIME 12/28/20 [History] Multivitamin 1 tab PO DAILY 12/28/20 [History] Omeprazole 20 mg PO DAILY PRN 12/28/20 [History] Potassium Chloride 8 meq PO BID 12/28/20 [History] Tofacitinib Citrate [Xeljanz] 5 mg PO BID 12/28/20 [History] Topiramate 25 mg PO BID 12/28/20 [History] Venlafaxine HCl [Venlafaxine ER] 150 mg PO DAILY 12/28/20 [History] atorvaSTATin [Lipitor] 80 mg PO DAILY 12/28/20 [History] carvediloL [Carvedilol] 6.25 mg PO BID 12/28/20 [History] predniSONE [Prednisone] 20 mg PO WEEKLY 12/28/20 [History] Past Medical History HEENT History: Reports: Allergic Rhinitis, Cataract, Other (See Below) Other HEENT History: wears glasses, has upper partial removable denture Cardiovascular History: Reports: Heart Failure, High Cholesterol, Hypertension Respiratory History: Reports: COPD Gastrointestinal History: Reports: Colon Polyp, Diverticulosis, GERD, Pancreatitis, Other (See Below) Other Gastrointestinal History: currently no symptoms, has stopped Omeprazole Genitourinary History: Reports: None [employer] History: Reports: Musculoskeletal History: Reports: Gout, Osteoarthritis Neurological History: Reports: Concussion Psychiatric History: Reports: Anxiety, Depression Endocrine/Metabolic History: Reports: Diabetes, Type II Other Endocrine/Metabolic History: diabetes is diet controlled- no meds Oncologic (Cancer) History: Reports: Breast - Past Surgical History Head Surgeries/Procedures: Reports: Other (See Below) HEENT Surgical History: Reports: Cataract Surgery Cardiovascular Surgical History: Reports: None Respiratory Surgical History: Reports: None GI Surgical History: Reports: Appendectomy, Other (See Below) Other GI Surgeries/Procedures: Exploratory laparotomy for "tumors" Female Surgical History: Reports: Breast Biopsy, Section, Hysterectomy, Salpingo-Oophorectomy Other Female Surgeries/Procedures: left breast lumpectomy for malignancy- lymph nodes removed Endocrine Surgical History: Reports: None Neurological Surgical History: Reports: None Musculoskeletal Surgical History: Reports: None Oncologic Surgical History: Reports: Lumpectomy Other Oncologic Surgeries/Procedures: Lymph Node Disection with Chemo Social & Family History - Family History Family Medical History: No Pertinent Family History - Tobacco Use Tobacco Use Status *Q: Former Tobacco User Used Tobacco, but Quit: Yes Month/Year Tobacco Last Used: "20years ago" - Caffeine Use Caffeine Use: Reports: Coffee - Recreational Drug Use Recreational Drug Use: No H&P Review of Systems - Review of Systems: Review Of Systems: See Below General: Reports: Malaise. Denies: Fever, Chills HEENT: Reports: No Symptoms. Denies: Headaches, Sinus Congestion, Sore Throat Pulmonary: Reports: Shortness of Breath. Denies: Pleuritic Chest Pain Cardiovascular: Reports: Dyspnea on Exertion, Lightheadedness. Denies: Chest Pain, Edema, Syncope Gastrointestinal: Reports: No Symptoms. Denies: Abdominal Pain, Black Stool, Bloody Stool Genitourinary: Reports: No Symptoms. Denies: Dysuria, Frequency Musculoskeletal: Reports: No Symptoms. Denies: Neck Pain Skin: Reports: No Symptoms Psychiatric: Reports: No Symptoms Neurological: Reports: No Symptoms. Denies: Headache Hematologic/Lymphatic: Reports: No Symptoms Immunologic: Reports: No Symptoms Exam - Exam Exam: See Below - Vital Signs Vital Signs: Last Vital Signs Temp 96.2 F L 12/28/20 11:40 Pulse 86 12/28/20 13:15 Resp 17 12/28/20 13:15 BP 117/63 12/28/20 13:15 Pulse Ox 98 12/28/20 13:15 Weight: 58.967 kg - Exam General: Alert, Oriented, Cooperative HEENT: Conjunctiva Clear, Posterior Pharynx Clear Lungs: Clear to Auscultation Cardiovascular: Regular Rate, Regular Rhythm GI/Abdominal Exam: Normal Bowel Sounds, Soft, Non-Tender Back Exam: Normal Inspection, Full Range of Motion Extremities: Normal Inspection, Normal Range of Motion, Non-Tender, No Pedal Edema Skin: Warm, Dry Neuro Extensive - Mental Status: Alert, Oriented x3 Neuro Extensive - Motor, Sensory, Reflexes: CN II-XII Intact Psychiatric: Alert, Normal Affect, Normal Mood - Patient Data Lab Results Last 24 hrs: Laboratory Results - last 24 hr 12/28/20 12/28/20 12/28/20 Range/Units 11:36 11:36 11:36 WBC 6.94 (4.0-11.0) K/uL RBC 3.60 L (4.30-5.90) M/uL Hgb 12.7 (12.0-16.0) g/dL Hct 36.7 (36.0-46.0) % MCV 101.9 H (80.0-98.0) fL MCH 35.3 H (27.0-32.0) pg MCHC 34.6 (31.0-37.0) g/dL RDW Std Deviation 56.3 (28.0-62.0) fl RDW Coeff of Carolyn 15 (11.0-15.0) % Plt Count 216 (150-400) K/uL MPV 10.30 (7.40-12.00) fL Neut % (Auto) 69.2 (48.0-80.0) % Lymph % (Auto) 20.9 (16.0-40.0) % Tyrrell % (Auto) 8.1 (0.0-15.0) % Eos % (Auto) 1.7 (0.0-7.0) % Baso % (Auto) 0.1 (0.0-1.5) % Neut # (Auto) 4.8 (1.4-5.7) K/uL Lymph # (Auto) 1.5 (0.6-2.4) K/uL Tyrrell # (Auto) 0.6 (0.0-0.8) K/uL Eos # (Auto) 0.1 (0.0-0.7) K/uL Baso # (Auto) 0.0 (0.0-0.1) K/uL Nucleated RBC % 0.0 /100WBC Nucleated RBCs # 0 K/uL INR APTT (18.6-31.3) SEC D-Dimer, Quantitative 7.42 H (0.0-0.50) mg/L FEU Sodium 140 (136-145) mmol/L Potassium 3.9 (3.5-5.1) mmol/L Chloride 102 (98-107) mmol/L Carbon Dioxide 24.8 (21.0-32.0) mmol/L BUN 25 H (7.0-18.0) mg/dL Creatinine 1.1 H (0.6-1.0) mg/dL Est Cr Clr Drug Dosing 33.69 mL/min Estimated GFR (MDRD) 49.0 ml/min Glucose 127 H (74-106) mg/dL Calcium 9.0 (8.5-10.1) mg/dL Total Bilirubin 1.2 H (0.2-1.0) mg/dL AST 16 (15-37) IU/L ALT 27 (14-63) IU/L Alkaline Phosphatase 75 (46-116) U/L Lactate Dehydrogenase (81-234) U/L Troponin I < 0.050 (0.000-0.056) ng/mL B-Natriuretic Peptide (<100) PG/ML Total Protein 8.0 (6.4-8.2) g/dL Albumin 4.0 (3.4-5.0) g/dL Globulin 4.0 (2.6-4.0) g/dL Albumin/Globulin Ratio 1.0 (0.9-1.6) SARS-CoV-2 RNA (ADITHYA) (NEGATIVE) 12/28/20 12/28/20 12/28/20 Range/Units 11:36 14:42 15:00 WBC (4.0-11.0) K/uL RBC (4.30-5.90) M/uL Hgb (12.0-16.0) g/dL Hct (36.0-46.0) % MCV (80.0-98.0) fL MCH (27.0-32.0) pg MCHC (31.0-37.0) g/dL RDW Std Deviation (28.0-62.0) fl RDW Coeff of Carolyn (11.0-15.0) % Plt Count (150-400) K/uL MPV (7.40-12.00) fL Neut % (Auto) (48.0-80.0) % Lymph % (Auto) (16.0-40.0) % Tyrrell % (Auto) (0.0-15.0) % Eos % (Auto) (0.0-7.0) % Baso % (Auto) (0.0-1.5) % Neut # (Auto) (1.4-5.7) K/uL Lymph # (Auto) (0.6-2.4) K/uL Tyrrell # (Auto) (0.0-0.8) K/uL Eos # (Auto) (0.0-0.7) K/uL Baso # (Auto) (0.0-0.1) K/uL Nucleated RBC % /100WBC Nucleated RBCs # K/uL INR APTT (18.6-31.3) SEC D-Dimer, Quantitative (0.0-0.50) mg/L FEU Sodium (136-145) mmol/L Potassium (3.5-5.1) mmol/L Chloride (98-107) mmol/L Carbon Dioxide (21.0-32.0) mmol/L BUN (7.0-18.0) mg/dL Creatinine (0.6-1.0) mg/dL Est Cr Clr Drug Dosing mL/min Estimated GFR (MDRD) ml/min Glucose (74-106) mg/dL Calcium (8.5-10.1) mg/dL Total Bilirubin (0.2-1.0) mg/dL AST (15-37) IU/L ALT (14-63) IU/L Alkaline Phosphatase (46-116) U/L Lactate Dehydrogenase 391 H (81-234) U/L Troponin I (0.000-0.056) ng/mL B-Natriuretic Peptide 45 (<100) PG/ML Total Protein (6.4-8.2) g/dL Albumin (3.4-5.0) g/dL Globulin (2.6-4.0) g/dL Albumin/Globulin Ratio (0.9-1.6) SARS-CoV-2 RNA (ADITHYA) NEGATIVE (NEGATIVE) 12/28/20 Range/Units 15:42 WBC (4.0-11.0) K/uL RBC (4.30-5.90) M/uL Hgb (12.0-16.0) g/dL Hct (36.0-46.0) % MCV (80.0-98.0) fL MCH (27.0-32.0) pg MCHC (31.0-37.0) g/dL RDW Std Deviation (28.0-62.0) fl RDW Coeff of Carolyn (11.0-15.0) % Plt Count (150-400) K/uL MPV (7.40-12.00) fL Neut % (Auto) (48.0-80.0) % Lymph % (Auto) (16.0-40.0) % Tyrrell % (Auto) (0.0-15.0) % Eos % (Auto) (0.0-7.0) % Baso % (Auto) (0.0-1.5) % Neut # (Auto) (1.4-5.7) K/uL Lymph # (Auto) (0.6-2.4) K/uL Tyrrell # (Auto) (0.0-0.8) K/uL Eos # (Auto) (0.0-0.7) K/uL Baso # (Auto) (0.0-0.1) K/uL Nucleated RBC % /100WBC Nucleated RBCs # K/uL INR 1.03 APTT 20.6 (18.6-31.3) SEC D-Dimer, Quantitative (0.0-0.50) mg/L FEU Sodium (136-145) mmol/L Potassium (3.5-5.1) mmol/L Chloride (98-107) mmol/L Carbon Dioxide (21.0-32.0) mmol/L BUN (7.0-18.0) mg/dL Creatinine (0.6-1.0) mg/dL Est Cr Clr Drug Dosing mL/min Estimated GFR (MDRD) ml/min Glucose (74-106) mg/dL Calcium (8.5-10.1) mg/dL Total Bilirubin (0.2-1.0) mg/dL AST (15-37) IU/L ALT (14-63) IU/L Alkaline Phosphatase (46-116) U/L Lactate Dehydrogenase (81-234) U/L Troponin I (0.000-0.056) ng/mL B-Natriuretic Peptide (<100) PG/ML Total Protein (6.4-8.2) g/dL Albumin (3.4-5.0) g/dL Globulin (2.6-4.0) g/dL Albumin/Globulin Ratio (0.9-1.6) SARS-CoV-2 RNA (ADITHYA) (NEGATIVE) Result Diagrams: 12/28/20 11:36 12/28/20 11:36 Sepsis Event Note - Evaluation Sepsis Screening Result: No Definite Risk - Focused Exam Vital Signs: Vital Signs Temp Pulse Resp BP Pulse Ox 12/28/20 13:15 86 17 117/63 98 12/28/20 12:45 76 17 125/62 97 12/28/20 12:00 85 17 144/69 H 99 12/28/20 11:40 96.2 F L 88 19 157/84 H 98 - Problem List (1) Pulmonary embolism SNOMED Code(s): 19744363 ICD Code: I26.99 - OTHER PULMONARY EMBOLISM WITHOUT ACUTE COR PULMONALE Status: Acute Current Visit: Yes Qualifiers: Pulmonary embolism type: multiple subsegmental (without acute cor pulmonale) Qualified Code(s): I26.94 - Multiple subsegmental pulmonary emboli without acute cor pulmonale (2) CHF (congestive heart failure) SNOMED Code(s): 68333228 ICD Code: I50.9 - HEART FAILURE, UNSPECIFIED Status: Chronic Current Visit: Yes Qualifiers: Heart failure type: unspecified Heart failure chronicity: chronic Qualified Code(s): I50.9 - Heart failure, unspecified (3) Hypertension SNOMED Code(s): 62374891 ICD Code: I10 - ESSENTIAL (PRIMARY) HYPERTENSION Status: Chronic Current Visit: Yes Qualifiers: Hypertension type: essential hypertension Qualified Code(s): I10 - Essential (primary) hypertension (4) Diet-controlled diabetes mellitus SNOMED Code(s): 418646045, 954750134 ICD Code: E11.9 - TYPE 2 DIABETES MELLITUS WITHOUT COMPLICATIONS Status: Chronic Current Visit: Yes (5) Rheumatoid arthritis SNOMED Code(s): 22228146 ICD Code: M06.9 - RHEUMATOID ARTHRITIS, UNSPECIFIED Status: Chronic Current Visit: Yes (6) HLD (hyperlipidemia) SNOMED Code(s): 01008287 ICD Code: E78.5 - HYPERLIPIDEMIA, UNSPECIFIED Status: Chronic Current Visit: Yes (7) History of breast cancer SNOMED Code(s): 144928179 ICD Code: Z85.3 - PERSONAL HISTORY OF MALIGNANT NEOPLASM OF BREAST Status: Chronic Current Visit: Yes Problem List Initiated/Reviewed/Updated: Yes Orders Last 24hrs: Active Orders 24 hr Category Date Time Status Patient Status [ADT] Routine ADT 12/28/20 14:45 Active RT Aerosol Therapy [RC] ASDIRECTED Care 12/28/20 13:03 Active FACTOR V LEIDEN MUTATION [REF] Stat Lab 12/28/20 14:46 Ordered PROTEIN C ANTIGEN [REF] Stat Lab 12/28/20 14:46 Ordered PROTEIN C-FUNCTIONAL [REF] Stat Lab 12/28/20 14:46 Ordered PROTEIN S-ANTIGEN [REF] Stat Lab 12/28/20 14:46 Ordered PROTEIN S-FUNCTIONAL [REF] Stat Lab 12/28/20 14:46 Ordered PTT,PARTIAL THROMBOPLSTIN TIME [COAG] Q6 Lab 12/28/20 20:45 Ordered PTT,PARTIAL THROMBOPLSTIN TIME [COAG] Q6 Lab 12/29/20 02:45 Ordered PTT,PARTIAL THROMBOPLSTIN TIME [COAG] Q6 Lab 12/29/20 08:45 Ordered PTT,PARTIAL THROMBOPLSTIN TIME [COAG] Q6 Lab 12/29/20 14:45 Ordered PTT,PARTIAL THROMBOPLSTIN TIME [COAG] Q6 Lab 12/29/20 20:45 Ordered PTT,PARTIAL THROMBOPLSTIN TIME [COAG] Q6 Lab 12/30/20 02:45 Ordered Heparin Sodium/0.45% NaCl [Heparin 25,000 Units in 1/2 Med 12/28/20 14:45 Active NS 500 ML] 500 ml IV TITRATE Sodium Chloride 0.9% [Saline Flush] Med 12/28/20 11:47 Active 10 ml FLUSH ASDIRECTED PRN Sodium Chloride 0.9% [Saline Flush] Med 12/28/20 11:47 Active 2.5 ml FLUSH ASDIRECTED PRN Saline Lock Insert [OM.PC] Stat Oth 12/28/20 11:47 Ordered Medication Orders Heparin Sodium/Sodium Chloride (Heparin 25,000 Units In 1/2 Ns 500 Ml) 500 mls @ 21.228 mls/hr IV TITRATE BENNIE; Protocol Last Admin: 12/28/20 15:43 Dose: 18 units/kg/hr, 21.228 mls/hr Documented by: EGO Cosigned by: AMBER Sodium Chloride (Sodium Chloride 0.9% 10 Ml Syringe) 10 ml FLUSH ASDIRECTED PRN PRN Reason: Keep Vein Open Last Admin: 12/28/20 12:03 Dose: 10 ml Documented by: GEO Sodium Chloride (Sodium Chloride 0.9% 2.5 Ml Syringe) 2.5 ml FLUSH ASDIRECTED PRN PRN Reason: Keep Vein Open Last Admin: 12/28/20 12:03 Dose: 2.5 ml Documented by: GEO Assessment/Plan Comment:: This 70-year-old female admitted with acute pulmonary embolism 1. Acute pulmonary embolism -Patient has significant shortness of breath and near syncope with exertion physical activity is walking to the bathroom - Oxygen PRN sats or for comfort. -Heparin drip per protocol -Bolus given in the ER -Monitor PTTs every 6 hours until stable per protocol -Continuous pulse ox -Coagulation studies pending -We will obtain echo -Patient does have history of breast cancer, 20 years ago -Monitor on telemetry -No right heart strain noted on CT. - Consider hx breast ca, steroid use or genetic component for cause. - We did discuss oral transition, she would be interested in Eliquis if possible vs Coumadin. 2. Hypertension -Continue home medications -Monitor closely for hypotension 3. DM type II -Diet controlled -ADA diet -NovoLog sliding scale with meals 4. Rheumatoid arthritis -Continue Xeljanz -Received prednisone on Thursday and methotrexate . GI prophylaxis: Omeprazole CODE STATUS: DNR/DNI discussed with patient with at bedside Dispo: 2 days pending improvement. - Mortality Measure Prognosis:: Good
[2020-12-28] MEDS ORDERED: Albuterol/Ipratropium 3.0-0.5 MG/3 ML Neb Soln NEB PRN (16:37)
[2020-12-28] MEDS: Topiramate 50 MG Tab PO SCH (21:21)
[2020-12-28] MEDS: atorvaSTATin 40 MG Tab PO SCH (21:22)
[2020-12-28] MEDS: Losartan 50 MG Tab PO SCH (21:23)
[2020-12-28] MEDS: Carvedilol 6.25 MG Tab PO SCH ×2 (22:34→23:32)
[2020-12-29 06:33] LABS: POTASSIUM,K 3.2 mmol/L (3.5-5.1)
[2020-12-29] MEDS: Topiramate 50 MG Tab PO SCH ×2 (08:02→20:34)
[2020-12-29] MEDS: Furosemide 40 MG Tab PO SCH (08:03)
[2020-12-29] MEDS: Venlafaxine 75 MG Cap.ER PO SCH (08:03)
[2020-12-29] MEDS: Multivitamin Tab PO SCH (08:03)
[2020-12-29] MEDS: Carvedilol 6.25 MG Tab PO SCH (09:39)
[2020-12-29] MEDS ORDERED: 50% Dextrose in Water 50 ML Syringe IV PRN (09:54)
[2020-12-29] MEDS ORDERED: Glucagon,Human Recombinant 1 MG Vial IM PRN (09:54)
[2020-12-29] MEDS ORDERED: Potassium Chloride 20 MEQ Tab.ER PO ONE (09:55)
[2020-12-29] MEDS ORDERED: Magnesium Sulfate/Water 2 GM/50 ML Premix Bag IV ONE (09:55)
[2020-12-29] MEDS ORDERED: Magnesium Sulfate/Water 2 GM/50 ML BAG IV ONE (10:30)
--- NOTE | 2020-12-29 11:27 | PCM.PN ---
- General Info Date of Service: 12/29/20 - Review of Systems Systems Review Comment:: shortness of breath improved, no chest pain - Patient Data Vitals - Most Recent: Last Vital Signs Temp 35.7 C L 12/29/20 07:29 Pulse 70 12/29/20 09:39 Resp 17 12/29/20 07:29 BP 111/54 L 12/29/20 09:39 Pulse Ox 97 12/29/20 07:29 Weight - Most Recent: 58.922 kg I&O - Last 24 Hours: Intake & Output 12/28/20 12/29/20 12/29/20 22:59 06:59 14:59 Intake Total 150 1050 Output Total 650 Balance 150 400 Lab Results Last 24 Hours: Laboratory Results - last 24 hr 12/28/20 12/28/20 12/28/20 Range/Units 11:36 11:36 11:36 WBC 6.94 (4.0-11.0) K/uL RBC 3.60 L (4.30-5.90) M/uL Hgb 12.7 (12.0-16.0) g/dL Hct 36.7 (36.0-46.0) % MCV 101.9 H (80.0-98.0) fL MCH 35.3 H (27.0-32.0) pg MCHC 34.6 (31.0-37.0) g/dL RDW Std Deviation 56.3 (28.0-62.0) fl RDW Coeff of Carolyn 15 (11.0-15.0) % Plt Count 216 (150-400) K/uL MPV 10.30 (7.40-12.00) fL Neut % (Auto) 69.2 (48.0-80.0) % Lymph % (Auto) 20.9 (16.0-40.0) % [place] % (Auto) 8.1 (0.0-15.0) % Eos % (Auto) 1.7 (0.0-7.0) % Baso % (Auto) 0.1 (0.0-1.5) % Neut # (Auto) 4.8 (1.4-5.7) K/uL Lymph # (Auto) 1.5 (0.6-2.4) K/uL [place] # (Auto) 0.6 (0.0-0.8) K/uL Eos # (Auto) 0.1 (0.0-0.7) K/uL Baso # (Auto) 0.0 (0.0-0.1) K/uL Nucleated RBC % 0.0 /100WBC Nucleated RBCs # 0 K/uL INR APTT (18.6-31.3) SEC D-Dimer, Quantitative 7.42 H (0.0-0.50) mg/L FEU Sodium 140 (136-145) mmol/L Potassium 3.9 (3.5-5.1) mmol/L Chloride 102 (98-107) mmol/L Carbon Dioxide 24.8 (21.0-32.0) mmol/L BUN 25 H (7.0-18.0) mg/dL Creatinine 1.1 H (0.6-1.0) mg/dL Est Cr Clr Drug Dosing 33.69 mL/min Estimated GFR (MDRD) 49.0 ml/min Glucose 127 H (74-106) mg/dL POC Glucose (70-99) mg/dL Calcium 9.0 (8.5-10.1) mg/dL Magnesium (1.8-2.4) mg/dL Total Bilirubin 1.2 H (0.2-1.0) mg/dL AST 16 (15-37) IU/L ALT 27 (14-63) IU/L Alkaline Phosphatase 75 (46-116) U/L Lactate Dehydrogenase (81-234) U/L Troponin I < 0.050 (0.000-0.056) ng/mL B-Natriuretic Peptide (<100) PG/ML Total Protein 8.0 (6.4-8.2) g/dL Albumin 4.0 (3.4-5.0) g/dL Globulin 4.0 (2.6-4.0) g/dL Albumin/Globulin Ratio 1.0 (0.9-1.6) SARS-CoV-2 RNA (ADITHYA) (NEGATIVE) 12/28/20 12/28/20 12/28/20 Range/Units 11:36 14:42 15:00 WBC (4.0-11.0) K/uL RBC (4.30-5.90) M/uL Hgb (12.0-16.0) g/dL Hct (36.0-46.0) % MCV (80.0-98.0) fL MCH (27.0-32.0) pg MCHC (31.0-37.0) g/dL RDW Std Deviation (28.0-62.0) fl RDW Coeff of Carolyn (11.0-15.0) % Plt Count (150-400) K/uL MPV (7.40-12.00) fL Neut % (Auto) (48.0-80.0) % Lymph % (Auto) (16.0-40.0) % [place] % (Auto) (0.0-15.0) % Eos % (Auto) (0.0-7.0) % Baso % (Auto) (0.0-1.5) % Neut # (Auto) (1.4-5.7) K/uL Lymph # (Auto) (0.6-2.4) K/uL [place] # (Auto) (0.0-0.8) K/uL Eos # (Auto) (0.0-0.7) K/uL Baso # (Auto) (0.0-0.1) K/uL Nucleated RBC % /100WBC Nucleated RBCs # K/uL INR APTT (18.6-31.3) SEC D-Dimer, Quantitative (0.0-0.50) mg/L FEU Sodium (136-145) mmol/L Potassium (3.5-5.1) mmol/L Chloride (98-107) mmol/L Carbon Dioxide (21.0-32.0) mmol/L BUN (7.0-18.0) mg/dL Creatinine (0.6-1.0) mg/dL Est Cr Clr Drug Dosing mL/min Estimated GFR (MDRD) ml/min Glucose (74-106) mg/dL POC Glucose (70-99) mg/dL Calcium (8.5-10.1) mg/dL Magnesium (1.8-2.4) mg/dL Total Bilirubin (0.2-1.0) mg/dL AST (15-37) IU/L ALT (14-63) IU/L Alkaline Phosphatase (46-116) U/L Lactate Dehydrogenase 391 H (81-234) U/L Troponin I (0.000-0.056) ng/mL B-Natriuretic Peptide 45 (<100) PG/ML Total Protein (6.4-8.2) g/dL Albumin (3.4-5.0) g/dL Globulin (2.6-4.0) g/dL Albumin/Globulin Ratio (0.9-1.6) SARS-CoV-2 RNA (ADITHYA) NEGATIVE (NEGATIVE) 12/28/20 12/28/20 12/28/20 Range/Units 15:42 18:13 20:51 WBC (4.0-11.0) K/uL RBC (4.30-5.90) M/uL Hgb (12.0-16.0) g/dL Hct (36.0-46.0) % MCV (80.0-98.0) fL MCH (27.0-32.0) pg MCHC (31.0-37.0) g/dL RDW Std Deviation (28.0-62.0) fl RDW Coeff of Carolyn (11.0-15.0) % Plt Count (150-400) K/uL MPV (7.40-12.00) fL Neut % (Auto) (48.0-80.0) % Lymph % (Auto) (16.0-40.0) % [place] % (Auto) (0.0-15.0) % Eos % (Auto) (0.0-7.0) % Baso % (Auto) (0.0-1.5) % Neut # (Auto) (1.4-5.7) K/uL Lymph # (Auto) (0.6-2.4) K/uL [place] # (Auto) (0.0-0.8) K/uL Eos # (Auto) (0.0-0.7) K/uL Baso # (Auto) (0.0-0.1) K/uL Nucleated RBC % /100WBC Nucleated RBCs # K/uL INR 1.03 APTT 20.6 > 250.0 H (18.6-31.3) SEC D-Dimer, Quantitative (0.0-0.50) mg/L FEU Sodium (136-145) mmol/L Potassium (3.5-5.1) mmol/L Chloride (98-107) mmol/L Carbon Dioxide (21.0-32.0) mmol/L BUN (7.0-18.0) mg/dL Creatinine (0.6-1.0) mg/dL Est Cr Clr Drug Dosing mL/min Estimated GFR (MDRD) ml/min Glucose (74-106) mg/dL POC Glucose 126 H (70-99) mg/dL Calcium (8.5-10.1) mg/dL Magnesium (1.8-2.4) mg/dL Total Bilirubin (0.2-1.0) mg/dL AST (15-37) IU/L ALT (14-63) IU/L Alkaline Phosphatase (46-116) U/L Lactate Dehydrogenase (81-234) U/L Troponin I (0.000-0.056) ng/mL B-Natriuretic Peptide (<100) PG/ML Total Protein (6.4-8.2) g/dL Albumin (3.4-5.0) g/dL Globulin (2.6-4.0) g/dL Albumin/Globulin Ratio (0.9-1.6) SARS-CoV-2 RNA (ADITHYA) (NEGATIVE) 12/29/20 12/29/20 12/29/20 Range/Units 02:47 05:25 05:25 WBC 7.94 (4.0-11.0) K/uL RBC 3.18 L (4.30-5.90) M/uL Hgb 11.0 L (12.0-16.0) g/dL Hct 32.7 L (36.0-46.0) % MCV 102.8 H (80.0-98.0) fL MCH 34.6 H (27.0-32.0) pg MCHC 33.6 (31.0-37.0) g/dL RDW Std Deviation 56.8 (28.0-62.0) fl RDW Coeff of Carolyn 15 (11.0-15.0) % Plt Count 193 (150-400) K/uL MPV 10.40 (7.40-12.00) fL Neut % (Auto) 84.4 H (48.0-80.0) % Lymph % (Auto) 6.7 L (16.0-40.0) % [place] % (Auto) 7.2 (0.0-15.0) % Eos % (Auto) 1.6 (0.0-7.0) % Baso % (Auto) 0.1 (0.0-1.5) % Neut # (Auto) 6.7 H (1.4-5.7) K/uL Lymph # (Auto) 0.5 L (0.6-2.4) K/uL [place] # (Auto) 0.6 (0.0-0.8) K/uL Eos # (Auto) 0.1 (0.0-0.7) K/uL Baso # (Auto) 0.0 (0.0-0.1) K/uL Nucleated RBC % 0.0 /100WBC Nucleated RBCs # 0 K/uL INR APTT > 250.0 H (18.6-31.3) SEC D-Dimer, Quantitative (0.0-0.50) mg/L FEU Sodium 142 (136-145) mmol/L Potassium 3.2 L (3.5-5.1) mmol/L Chloride 104 (98-107) mmol/L Carbon Dioxide 26.0 (21.0-32.0) mmol/L BUN 29 H (7.0-18.0) mg/dL Creatinine 1.1 H (0.6-1.0) mg/dL Est Cr Clr Drug Dosing 33.69 mL/min Estimated GFR (MDRD) 49.0 ml/min Glucose 130 H (74-106) mg/dL POC Glucose (70-99) mg/dL Calcium 8.5 (8.5-10.1) mg/dL Magnesium 1.6 L (1.8-2.4) mg/dL Total Bilirubin (0.2-1.0) mg/dL AST (15-37) IU/L ALT (14-63) IU/L Alkaline Phosphatase (46-116) U/L Lactate Dehydrogenase (81-234) U/L Troponin I (0.000-0.056) ng/mL B-Natriuretic Peptide (<100) PG/ML Total Protein (6.4-8.2) g/dL Albumin (3.4-5.0) g/dL Globulin (2.6-4.0) g/dL Albumin/Globulin Ratio (0.9-1.6) SARS-CoV-2 RNA (ADITHYA) (NEGATIVE) 12/29/20 12/29/20 Range/Units 06:07 08:51 WBC (4.0-11.0) K/uL RBC (4.30-5.90) M/uL Hgb (12.0-16.0) g/dL Hct (36.0-46.0) % MCV (80.0-98.0) fL MCH (27.0-32.0) pg MCHC (31.0-37.0) g/dL RDW Std Deviation (28.0-62.0) fl RDW Coeff of Carolyn (11.0-15.0) % Plt Count (150-400) K/uL MPV (7.40-12.00) fL Neut % (Auto) (48.0-80.0) % Lymph % (Auto) (16.0-40.0) % [place] % (Auto) (0.0-15.0) % Eos % (Auto) (0.0-7.0) % Baso % (Auto) (0.0-1.5) % Neut # (Auto) (1.4-5.7) K/uL Lymph # (Auto) (0.6-2.4) K/uL [place] # (Auto) (0.0-0.8) K/uL Eos # (Auto) (0.0-0.7) K/uL Baso # (Auto) (0.0-0.1) K/uL Nucleated RBC % /100WBC Nucleated RBCs # K/uL INR APTT 97.1 H (18.6-31.3) SEC D-Dimer, Quantitative (0.0-0.50) mg/L FEU Sodium (136-145) mmol/L Potassium (3.5-5.1) mmol/L Chloride (98-107) mmol/L Carbon Dioxide (21.0-32.0) mmol/L BUN (7.0-18.0) mg/dL Creatinine (0.6-1.0) mg/dL Est Cr Clr Drug Dosing mL/min Estimated GFR (MDRD) ml/min Glucose (74-106) mg/dL POC Glucose 127 H (70-99) mg/dL Calcium (8.5-10.1) mg/dL Magnesium (1.8-2.4) mg/dL Total Bilirubin (0.2-1.0) mg/dL AST (15-37) IU/L ALT (14-63) IU/L Alkaline Phosphatase (46-116) U/L Lactate Dehydrogenase (81-234) U/L Troponin I (0.000-0.056) ng/mL B-Natriuretic Peptide (<100) PG/ML Total Protein (6.4-8.2) g/dL Albumin (3.4-5.0) g/dL Globulin (2.6-4.0) g/dL Albumin/Globulin Ratio (0.9-1.6) SARS-CoV-2 RNA (ADITHYA) (NEGATIVE) Med Orders - Current: Current Medications Acetaminophen (Acetaminophen 325 Mg Tab) 650 mg PO Q4H PRN PRN Reason: Pain (Mild 1-3)/fever Albuterol/Ipratropium (Albuterol/Ipratropium 3.0-0.5 Mg/3 Ml Neb Soln) 3 ml NEB Q4HRRT PRN PRN Reason: SOB/wheezing Atorvastatin Calcium (Atorvastatin 40 Mg Tab) 80 mg PO BEDTIME BENNIE Last Admin: 12/28/20 21:22 Dose: 80 mg Documented by: Carvedilol (Carvedilol 3.125 Mg Tab) 6.25 mg PO BID BENNIE Dextrose/Water (50% Dextrose In Water 50 Ml Syringe) 50 ml IV ASDIRECTED PRN PRN Reason: Hypoglycemia Furosemide (Furosemide 40 Mg Tab) 40 mg PO DAILY BENNIE Last Admin: 12/29/20 08:03 Dose: 40 mg Documented by: Glucagon (Glucagon,Human Recombinant 1 Mg Vial) 1 mg IM ASDIRECTED PRN PRN Reason: Hypoglycemia Heparin Sodium/Sodium Chloride (Heparin 25,000 Units In 1/2 Ns 500 Ml) 500 mls @ 21.228 mls/hr IV TITRATE BENNIE; Protocol Last Titration: 12/29/20 10:39 Dose: 9 units/kg/hr, 10.614 mls/hr Documented by: Magnesium Sulfate (Magnesium Sulfate In Water 2 Gm/50 Ml) 2 gm in 50 mls @ 50 mls/hr IV ONETIME ONE Stop: 12/29/20 11:29 Last Admin: 12/29/20 10:49 Dose: 50 mls/hr Documented by: Insulin Aspart (Insulin Aspart 100 Units/Ml 3 Ml Pen) 0 unit SUBCUT TIDAC [facility]; Protocol Losartan Potassium (Losartan 50 Mg Tab) 50 mg PO BEDTIME [facility] Last Admin: 12/28/20 21:23 Dose: 50 mg Documented by: Multivitamins/Minerals/Vitamin C (Multivitamin Tab) 1 tab PO DAILY [facility] Last Admin: 12/29/20 08:03 Dose: 1 tab Documented by: Omeprazole (Omeprazole 20 Mg Cap.Cr) 20 mg PO ACBREAKFAST PRN PRN Reason: Heartburn Last Admin: 12/29/20 08:02 Dose: 20 mg Documented by: Ondansetron HCl (Ondansetron 4 Mg/2 Ml Sdv) 4 mg IVPUSH Q4H PRN PRN Reason: Nausea Tofacitinib Citrate [Xeljanz] 5 Mg Tablet 1 each PO BID [facility] Last Admin: 12/29/20 09:38 Dose: Not Given Documented by: Sodium Chloride (Sodium Chloride 0.9% 2.5 Ml Syringe) 2.5 ml FLUSH ASDIRECTED P RN PRN Reason: Keep Vein Open Topiramate (Topiramate 50 Mg Tab) 25 mg PO BID [facility] Last Admin: 12/29/20 08:02 Dose: 25 mg Documented by: Venlafaxine HCl (Venlafaxine 75 Mg Cap.Er) 150 mg PO DAILY [facility] Last Admin: 12/29/20 08:03 Dose: 150 mg Documented by: Discontinued Medications Albuterol/Ipratropium (Albuterol/Ipratropium 3.0-0.5 Mg/3 Ml Neb Soln) 3 ml NEB ONETIME ONE Stop: 12/28/20 13:04 Last Admin: 12/28/20 13:14 Dose: 3 ml Documented by: Carvedilol (Carvedilol 6.25 Mg Tab) 6.25 mg PO BID [facility] Last Admin: 12/29/20 09:39 Dose: 6.25 mg Documented by: Heparin Sodium (Porcine) (Heparin Sodium 5,000 Units/Ml Vial) 4,712 units IVPUSH .BOLUS ONE; Protocol Stop: 12/28/20 15:20 Last Admin: 12/28/20 15:42 Dose: 4,712 units Documented by: Iopamidol (Iopamidol 755 Mg/Ml 500 Ml Multipack Bottle) 68 ml IVPUSH ONETIME ONE Stop: 12/28/20 13:55 Last Admin: 12/28/20 13:56 Dose: 68 ml Documented by: Potassium Chloride (Potassium Chloride 20 Meq Tab.Er) 40 meq PO ONETIME ONE Stop: 12/29/20 09:56 Last Admin: 12/29/20 10:35 Dose: 40 meq Documented by: Sodium Chloride (Sodium Chloride 0.9% 10 Ml Syringe) 10 ml FLUSH ASDIRECTED PRN PRN Reason: Keep Vein Open Last Admin: 12/28/20 12:03 Dose: 10 ml Documented by: Sodium Chloride (Sodium Chloride 0.9% 2.5 Ml Syringe) 2.5 ml FLUSH ASDIRECTED PRN PRN Reason: Keep Vein Open Last Admin: 12/28/20 12:03 Dose: 2.5 ml Documented by: - Exam General: Alert, Oriented Neck: Supple Lungs: Clear to Auscultation, Normal Respiratory Effort Cardiovascular: Regular Rate, Regular Rhythm GI/Abdominal Exam: Soft, Non-Tender Extremities: Non-Tender, No Pedal Edema Skin: Warm, Dry, Intact Neurological: No New Focal Deficit - Patient Data Lab Results Last 24 hrs: Laboratory Results - last 24 hr 12/28/20 12/28/20 12/28/20 Range/Units 11:36 11:36 11:36 WBC 6.94 (4.0-11.0) K/uL RBC 3.60 L (4.30-5.90) M/uL Hgb 12.7 (12.0-16.0) g/dL Hct 36.7 (36.0-46.0) % MCV 101.9 H (80.0-98.0) fL MCH 35.3 H (27.0-32.0) pg MCHC 34.6 (31.0-37.0) g/dL RDW Std Deviation 56.3 (28.0-62.0) fl RDW Coeff of Carolyn 15 (11.0-15.0) % Plt Count 216 (150-400) K/uL MPV 10.30 (7.40-12.00) fL Neut % (Auto) 69.2 (48.0-80.0) % Lymph % (Auto) 20.9 (16.0-40.0) % [place] % (Auto) 8.1 (0.0-15.0) % Eos % (Auto) 1.7 (0.0-7.0) % Baso % (Auto) 0.1 (0.0-1.5) % Neut # (Auto) 4.8 (1.4-5.7) K/uL Lymph # (Auto) 1.5 (0.6-2.4) K/uL [place] # (Auto) 0.6 (0.0-0.8) K/uL Eos # (Auto) 0.1 (0.0-0.7) K/uL Baso # (Auto) 0.0 (0.0-0.1) K/uL Nucleated RBC % 0.0 /100WBC Nucleated RBCs # 0 K/uL INR APTT (18.6-31.3) SEC D-Dimer, Quantitative 7.42 H (0.0-0.50) mg/L FEU Sodium 140 (136-145) mmol/L Potassium 3.9 (3.5-5.1) mmol/L Chloride 102 (98-107) mmol/L Carbon Dioxide 24.8 (21.0-32.0) mmol/L BUN 25 H (7.0-18.0) mg/dL Creatinine 1.1 H (0.6-1.0) mg/dL Est Cr Clr Drug Dosing 33.69 mL/min Estimated GFR (MDRD) 49.0 ml/min Glucose 127 H (74-106) mg/dL POC Glucose (70-99) mg/dL Calcium 9.0 (8.5-10.1) mg/dL Magnesium (1.8-2.4) mg/dL Total Bilirubin 1.2 H (0.2-1.0) mg/dL AST 16 (15-37) IU/L ALT 27 (14-63) IU/L Alkaline Phosphatase 75 (46-116) U/L Lactate Dehydrogenase (81-234) U/L Troponin I < 0.050 (0.000-0.056) ng/mL B-Natriuretic Peptide (<100) PG/ML Total Protein 8.0 (6.4-8.2) g/dL Albumin 4.0 (3.4-5.0) g/dL Globulin 4.0 (2.6-4.0) g/dL Albumin/Globulin Ratio 1.0 (0.9-1.6) SARS-CoV-2 RNA (ADITHYA) (NEGATIVE) 12/28/20 12/28/20 12/28/20 Range/Units 11:36 14:42 15:00 WBC (4.0-11.0) K/uL RBC (4.30-5.90) M/uL Hgb (12.0-16.0) g/dL Hct (36.0-46.0) % MCV (80.0-98.0) fL MCH (27.0-32.0) pg MCHC (31.0-37.0) g/dL RDW Std Deviation (28.0-62.0) fl RDW Coeff of Carolyn (11.0-15.0) % Plt Count (150-400) K/uL MPV (7.40-12.00) fL Neut % (Auto) (48.0-80.0) % Lymph % (Auto) (16.0-40.0) % [place] % (Auto) (0.0-15.0) % Eos % (Auto) (0.0-7.0) % Baso % (Auto) (0.0-1.5) % Neut # (Auto) (1.4-5.7) K/uL Lymph # (Auto) (0.6-2.4) K/uL [place] # (Auto) (0.0-0.8) K/uL Eos # (Auto) (0.0-0.7) K/uL Baso # (Auto) (0.0-0.1) K/uL Nucleated RBC % /100WBC Nucleated RBCs # K/uL INR APTT (18.6-31.3) SEC D-Dimer, Quantitative (0.0-0.50) mg/L FEU Sodium (136-145) mmol/L Potassium (3.5-5.1) mmol/L Chloride (98-107) mmol/L Carbon Dioxide (21.0-32.0) mmol/L BUN (7.0-18.0) mg/dL Creatinine (0.6-1.0) mg/dL Est Cr Clr Drug Dosing mL/min Estimated GFR (MDRD) ml/min Glucose (74-106) mg/dL POC Glucose (70-99) mg/dL Calcium (8.5-10.1) mg/dL Magnesium (1.8-2.4) mg/dL Total Bilirubin (0.2-1.0) mg/dL AST (15-37) IU/L ALT (14-63) IU/L Alkaline Phosphatase (46-116) U/L Lactate Dehydrogenase 391 H (81-234) U/L Troponin I (0.000-0.056) ng/mL B-Natriuretic Peptide 45 (<100) PG/ML Total Protein (6.4-8.2) g/dL Albumin (3.4-5.0) g/dL Globulin (2.6-4.0) g/dL Albumin/Globulin Ratio (0.9-1.6) SARS-CoV-2 RNA (ADITHYA) NEGATIVE (NEGATIVE) 12/28/20 12/28/20 12/28/20 Range/Units 15:42 18:13 20:51 WBC (4.0-11.0) K/uL RBC (4.30-5.90) M/uL Hgb (12.0-16.0) g/dL Hct (36.0-46.0) % MCV (80.0-98.0) fL MCH (27.0-32.0) pg MCHC (31.0-37.0) g/dL RDW Std Deviation (28.0-62.0) fl RDW Coeff of Carolyn (11.0-15.0) % Plt Count (150-400) K/uL MPV (7.40-12.00) fL Neut % (Auto) (48.0-80.0) % Lymph % (Auto) (16.0-40.0) % [place] % (Auto) (0.0-15.0) % Eos % (Auto) (0.0-7.0) % Baso % (Auto) (0.0-1.5) % Neut # (Auto) (1.4-5.7) K/uL Lymph # (Auto) (0.6-2.4) K/uL [place] # (Auto) (0.0-0.8) K/uL Eos # (Auto) (0.0-0.7) K/uL Baso # (Auto) (0.0-0.1) K/uL Nucleated RBC % /100WBC Nucleated RBCs # K/uL INR 1.03 APTT 20.6 > 250.0 H (18.6-31.3) SEC D-Dimer, Quantitative (0.0-0.50) mg/L FEU Sodium (136-145) mmol/L Potassium (3.5-5.1) mmol/L Chloride (98-107) mmol/L Carbon Dioxide (21.0-32.0) mmol/L BUN (7.0-18.0) mg/dL Creatinine (0.6-1.0) mg/dL Est Cr Clr Drug Dosing mL/min Estimated GFR (MDRD) ml/min Glucose (74-106) mg/dL POC Glucose 126 H (70-99) mg/dL Calcium (8.5-10.1) mg/dL Magnesium (1.8-2.4) mg/dL Total Bilirubin (0.2-1.0) mg/dL AST (15-37) IU/L ALT (14-63) IU/L Alkaline Phosphatase (46-116) U/L Lactate Dehydrogenase (81-234) U/L Troponin I (0.000-0.056) ng/mL B-Natriuretic Peptide (<100) PG/ML Total Protein (6.4-8.2) g/dL Albumin (3.4-5.0) g/dL Globulin (2.6-4.0) g/dL Albumin/Globulin Ratio (0.9-1.6) SARS-CoV-2 RNA (ADITHYA) (NEGATIVE) 12/29/20 12/29/20 12/29/20 Range/Units 02:47 05:25 05:25 WBC 7.94 (4.0-11.0) K/uL RBC 3.18 L (4.30-5.90) M/uL Hgb 11.0 L (12.0-16.0) g/dL Hct 32.7 L (36.0-46.0) % MCV 102.8 H (80.0-98.0) fL MCH 34.6 H (27.0-32.0) pg MCHC 33.6 (31.0-37.0) g/dL RDW Std Deviation 56.8 (28.0-62.0) fl RDW Coeff of Carolyn 15 (11.0-15.0) % Plt Count 193 (150-400) K/uL MPV 10.40 (7.40-12.00) fL Neut % (Auto) 84.4 H (48.0-80.0) % Lymph % (Auto) 6.7 L (16.0-40.0) % [place] % (Auto) 7.2 (0.0-15.0) % Eos % (Auto) 1.6 (0.0-7.0) % Baso % (Auto) 0.1 (0.0-1.5) % Neut # (Auto) 6.7 H (1.4-5.7) K/uL Lymph # (Auto) 0.5 L (0.6-2.4) K/uL Oldham # (Auto) 0.6 (0.0-0.8) K/uL Eos # (Auto) 0.1 (0.0-0.7) K/uL Baso # (Auto) 0.0 (0.0-0.1) K/uL Nucleated RBC % 0.0 /100WBC Nucleated RBCs # 0 K/uL INR APTT > 250.0 H (18.6-31.3) SEC D-Dimer, Quantitative (0.0-0.50) mg/L FEU Sodium 142 (136-145) mmol/L Potassium 3.2 L (3.5-5.1) mmol/L Chloride 104 (98-107) mmol/L Carbon Dioxide 26.0 (21.0-32.0) mmol/L BUN 29 H (7.0-18.0) mg/dL Creatinine 1.1 H (0.6-1.0) mg/dL Est Cr Clr Drug Dosing 33.69 mL/min Estimated GFR (MDRD) 49.0 ml/min Glucose 130 H (74-106) mg/dL POC Glucose (70-99) mg/dL Calcium 8.5 (8.5-10.1) mg/dL Magnesium 1.6 L (1.8-2.4) mg/dL Total Bilirubin (0.2-1.0) mg/dL AST (15-37) IU/L ALT (14-63) IU/L Alkaline Phosphatase (46-116) U/L Lactate Dehydrogenase (81-234) U/L Troponin I (0.000-0.056) ng/mL B-Natriuretic Peptide (<100) PG/ML Total Protein (6.4-8.2) g/dL Albumin (3.4-5.0) g/dL Globulin (2.6-4.0) g/dL Albumin/Globulin Ratio (0.9-1.6) SARS-CoV-2 RNA (ADITHYA) (NEGATIVE) 12/29/20 12/29/20 Range/Units 06:07 08:51 WBC (4.0-11.0) K/uL RBC (4.30-5.90) M/uL Hgb (12.0-16.0) g/dL Hct (36.0-46.0) % MCV (80.0-98.0) fL MCH (27.0-32.0) pg MCHC (31.0-37.0) g/dL RDW Std Deviation (28.0-62.0) fl RDW Coeff of Carolyn (11.0-15.0) % Plt Count (150-400) K/uL MPV (7.40-12.00) fL Neut % (Auto) (48.0-80.0) % Lymph % (Auto) (16.0-40.0) % [place] % (Auto) (0.0-15.0) % Eos % (Auto) (0.0-7.0) % Baso % (Auto) (0.0-1.5) % Neut # (Auto) (1.4-5.7) K/uL Lymph # (Auto) (0.6-2.4) K/uL [place] # (Auto) (0.0-0.8) K/uL Eos # (Auto) (0.0-0.7) K/uL Baso # (Auto) (0.0-0.1) K/uL Nucleated RBC % /100WBC Nucleated RBCs # K/uL INR APTT 97.1 H (18.6-31.3) SEC D-Dimer, Quantitative (0.0-0.50) mg/L FEU Sodium (136-145) mmol/L Potassium (3.5-5.1) mmol/L Chloride (98-107) mmol/L Carbon Dioxide (21.0-32.0) mmol/L BUN (7.0-18.0) mg/dL Creatinine (0.6-1.0) mg/dL Est Cr Clr Drug Dosing mL/min Estimated GFR (MDRD) ml/min Glucose (74-106) mg/dL POC Glucose 127 H (70-99) mg/dL Calcium (8.5-10.1) mg/dL Magnesium (1.8-2.4) mg/dL Total Bilirubin (0.2-1.0) mg/dL AST (15-37) IU/L ALT (14-63) IU/L Alkaline Phosphatase (46-116) U/L Lactate Dehydrogenase (81-234) U/L Troponin I (0.000-0.056) ng/mL B-Natriuretic Peptide (<100) PG/ML Total Protein (6.4-8.2) g/dL Albumin (3.4-5.0) g/dL Globulin (2.6-4.0) g/dL Albumin/Globulin Ratio (0.9-1.6) SARS-CoV-2 RNA (ADITHYA) (NEGATIVE) Result Diagrams: 12/29/20 05:25 12/29/20 05:25 Sepsis Event Note - Evaluation Sepsis Screening Result: No Definite Risk - Focused Exam Vital Signs: Vital Signs Temp Pulse Pulse Resp BP BP Pulse Ox 12/29/20 09:39 70 111/54 L 12/29/20 07:29 35.7 C L 74 17 113/58 L 97 12/29/20 04:00 36.7 C 72 17 120/77 98 12/28/20 23:32 36.3 C 78 78 18 128/67 128/67 99 - Problem List Review Problem List Initiated/Reviewed/Updated: Yes - My Orders Last 24 Hours: My Active Orders 12/29/20 09:54 Dextrose 50% in Water 50 ml IV ASDIRECTED PRN Glucagon,Human Recombinant [GlucaGen] 1 mg IM ASDIRECTED PRN 12/29/20 10:30 Magnesium Sulfate/Water [Magnesium Sulfate in Water 2 GM/50 ML] 2 gm in 50 ml IV ONETIME 12/29/20 11:30 Insulin Aspart [NovoLOG] See Protocol SUBCUT TIDAC 12/30/20 05:11 BASIC METABOLIC PANEL,BMP [CHEM] AM CBC WITH AUTO DIFF [HEME] AM - Plan Plan:: This 70-year-old female admitted with acute pulmonary embolism 1. Acute pulmonary embolism -continue heparin drip -Will transition to DOAC tomorrow. Patient reports will be able to fill prescri ptions at [facility] on Thursday -Advised on routine cancer screenings. -High risk of bleeding with anticoagulation considering steroid and aspirin use. Discussed PPI use and speaking with budget and policy analyst regarding the need of current medications. 2. Hypertension -Continue home medications -Monitor closely for hypotension 3. DM type II -Diet controlled -ADA diet -NovoLog sliding scale with meals 4. Rheumatoid arthritis -Continue Xeljanz -Received prednisone on Thursday and methotrexate . GI prophylaxis: Omeprazole CODE STATUS: DNR/DNI discussed with patient with at bedside Dispo: likely home tomorrow.
[2020-12-29] MEDS: Insulin Aspart 100 Units/ML 3 ML Pen SUBCUT SCH ×2 (12:43→18:15)
[2020-12-29] MEDS: Losartan 50 MG Tab PO SCH (20:34)
[2020-12-29] MEDS: atorvaSTATin 40 MG Tab PO SCH (20:34)
[2020-12-29] MEDS: Carvedilol 3.125 MG Tab PO SCH (20:35)
[2020-12-30 03:13] LABS: CARBON DIOXIDE,CO2 27.2 mmol/L (21.0-32.0); POTASSIUM,K 3.6 mmol/L (3.5-5.1)
[2020-12-30] MEDS: Heparin Sodium/0.45% NaCl 500 ML IV SCH (04:43)
[2020-12-30] MEDS: Insulin Aspart 100 Units/ML 3 ML Pen SUBCUT SCH ×2 (07:44→12:12)
[2020-12-30] MEDS: Furosemide 40 MG Tab PO SCH (08:53)
[2020-12-30] MEDS: Topiramate 50 MG Tab PO SCH (08:53)
[2020-12-30] MEDS: Carvedilol 3.125 MG Tab PO SCH (08:53)
[2020-12-30] MEDS: Multivitamin Tab PO SCH (08:53)
[2020-12-30] MEDS: Venlafaxine 75 MG Cap.ER PO SCH (08:53)
--- NOTE | 2020-12-30 14:38 | PCM.DCSUM1 ---
Discharge Summary - Discharge Data Discharge Date: 12/30/20 Discharge Disposition: Home, Self-Care 01 Condition: Good - Referral to Home Health Primary Care Physician: PCP None - Patient Summary/Data Hospital Course: HTN this 70-year-old female with past medical history of CHF HLD HTN, COPD, DM type II, GERD history of breast cancer in remission x20 years, presented to the ER with complaints of shortness of breath that worsened with exertion that was started yesterday. Laboratory work up was unremarkable except for elevated d- dimer. She was found to have PE on CT scan of chest which revealed pulmonary emboli involving first and second order branches to the right and left lower lobes and right upper lobe. She was treated with heparin drip which she tolerated well. She feels ready for discharge today as shortness of breath has resolved. Patient was transitioned to oral Eliquis this evening. As pharmacies and [facility] are not open today we will give her a morning dose of Eliquis at discharge so she as time to fill her prescription tomorrow. - Patient Instructions Diet: Usual Diet as Tolerated Activity: As Tolerated Notify Provider of: Fever, Increased Pain, Nausea and/or Vomiting (shortness of breath or chest pain.) - Discharge Plan *PRESCRIPTION DRUG MONITORING PROGRAM REVIEWED*: Not Applicable *COPY OF PRESCRIPTION DRUG MONITORING REPORT IN PATIENT WHIT: Not Applicable Prescriptions/Med Rec: Apixaban [Eliquis] 5 - 10 mg PO BID #74 tablet Home Medications: Home Meds Methotrexate 7.5 mg PO WEEKLY 02/11/17 [History] Ascorbic Acid [C-1000] 1,000 mg PO DAILY 12/28/20 [History] Cholecalciferol (Vitamin D3) [Vitamin D3] 25 mcg PO DAILY 12/28/20 [History] Diclofenac Sodium [Voltaren] 4 gm TOP TID 12/28/20 [History] Ferrous Sulfate 325 mg PO BID 12/28/20 [History] Folic Acid 1 mg PO DAILY 12/28/20 [History] Furosemide 40 mg PO DAILY 12/28/20 [History] Losartan [Cozaar] 50 mg PO BEDTIME 12/28/20 [History] Multivitamin 1 tab PO DAILY 12/28/20 [History] Omeprazole 20 mg PO DAILY PRN 12/28/20 [History] Potassium Chloride 8 meq PO BID 12/28/20 [History] Tofacitinib Citrate [Xeljanz] 5 mg PO BID 12/28/20 [History] Topiramate 25 mg PO BID 12/28/20 [History] Venlafaxine HCl [Venlafaxine ER] 150 mg PO DAILY 12/28/20 [History] atorvaSTATin [Lipitor] 80 mg PO DAILY 12/28/20 [History] carvediloL [Carvedilol] 6.25 mg PO BID 12/28/20 [History] predniSONE [Prednisone] 20 mg PO WEEKLY 12/28/20 [History] Apixaban [Eliquis] 5 - 10 mg PO BID #74 tablet 12/30/20 [Rx] Patient Handouts: Pulmonary Embolism Referrals: Michell Harvey MD [Physician] - - Patient Data Vitals - Most Recent: Last Vital Signs Temp 36.1 C 12/30/20 12:14 Pulse 88 12/30/20 12:14 Resp 16 12/30/20 12:14 BP 127/68 12/30/20 12:14 Pulse Ox 96 12/30/20 12:14 Weight - Most Recent: 59.103 kg I&O - Last 24 hours: Intake & Output 12/29/20 12/30/20 12/30/20 22:59 06:59 14:59 Intake Total 1592 1137 Output Total 1700 850 Balance -108 287 Lab Results - Last 24 hrs: Laboratory Results - last 24 hr 12/29/20 12/29/20 12/30/20 Range/Units 14:53 20:48 02:55 WBC (4.0-11.0) K/uL RBC (4.30-5.90) M/uL Hgb (12.0-16.0) g/dL Hct (36.0-46.0) % MCV (80.0-98.0) fL MCH (27.0-32.0) pg MCHC (31.0-37.0) g/dL RDW Std Deviation (28.0-62.0) fl RDW Coeff of Carolyn (11.0-15.0) % Plt Count (150-400) K/uL MPV (7.40-12.00) fL Neut % (Auto) (48.0-80.0) % Lymph % (Auto) (16.0-40.0) % [place] % (Auto) (0.0-15.0) % Eos % (Auto) (0.0-7.0) % Baso % (Auto) (0.0-1.5) % Neut # (Auto) (1.4-5.7) K/uL Lymph # (Auto) (0.6-2.4) K/uL [place] # (Auto) (0.0-0.8) K/uL Eos # (Auto) (0.0-0.7) K/uL Baso # (Auto) (0.0-0.1) K/uL Nucleated RBC % /100WBC Nucleated RBCs # K/uL APTT 66.6 H 56.6 H 59.9 H (18.6-31.3) SEC Sodium (136-145) mmol/L Potassium (3.5-5.1) mmol/L Chloride (98-107) mmol/L Carbon Dioxide (21.0-32.0) mmol/L BUN (7.0-18.0) mg/dL Creatinine (0.6-1.0) mg/dL Est Cr Clr Drug Dosing mL/min Estimated GFR (MDRD) ml/min Glucose (74-106) mg/dL POC Glucose (70-99) mg/dL Calcium (8.5-10.1) mg/dL 12/30/20 12/30/20 12/30/20 Range/Units 02:55 02:55 06:23 WBC 6.57 (4.0-11.0) K/uL RBC 3.10 L (4.30-5.90) M/uL Hgb 10.9 L (12.0-16.0) g/dL Hct 31.6 L (36.0-46.0) % MCV 101.9 H (80.0-98.0) fL MCH 35.2 H (27.0-32.0) pg MCHC 34.5 (31.0-37.0) g/dL RDW Std Deviation 55.3 (28.0-62.0) fl RDW Coeff of Carolyn 15 (11.0-15.0) % Plt Count 185 (150-400) K/uL MPV 9.70 (7.40-12.00) fL Neut % (Auto) 83.5 H (48.0-80.0) % Lymph % (Auto) 5.6 L (16.0-40.0) % [place] % (Auto) 7.8 (0.0-15.0) % Eos % (Auto) 2.9 (0.0-7.0) % Baso % (Auto) 0.2 (0.0-1.5) % Neut # (Auto) 5.5 (1.4-5.7) K/uL Lymph # (Auto) 0.4 L (0.6-2.4) K/uL [place] # (Auto) 0.5 (0.0-0.8) K/uL Eos # (Auto) 0.2 (0.0-0.7) K/uL Baso # (Auto) 0.0 (0.0-0.1) K/uL Nucleated RBC % 0.0 /100WBC Nucleated RBCs # 0 K/uL APTT (18.6-31.3) SEC Sodium 138 (136-145) mmol/L Potassium 3.6 (3.5-5.1) mmol/L Chloride 103 (98-107) mmol/L Carbon Dioxide 27.2 (21.0-32.0) mmol/L BUN 25 H (7.0-18.0) mg/dL Creatinine 1.0 (0.6-1.0) mg/dL Est Cr Clr Drug Dosing 37.06 mL/min Estimated GFR (MDRD) 54.7 ml/min Glucose 120 H (74-106) mg/dL POC Glucose 107 H (70-99) mg/dL Calcium 8.4 L (8.5-10.1) mg/dL 12/30/20 12/30/20 Range/Units 08:43 12:12 WBC (4.0-11.0) K/uL RBC (4.30-5.90) M/uL Hgb (12.0-16.0) g/dL Hct (36.0-46.0) % MCV (80.0-98.0) fL MCH (27.0-32.0) pg MCHC (31.0-37.0) g/dL RDW Std Deviation (28.0-62.0) fl RDW Coeff of Carolyn (11.0-15.0) % Plt Count (150-400) K/uL MPV (7.40-12.00) fL Neut % (Auto) (48.0-80.0) % Lymph % (Auto) (16.0-40.0) % [place] % (Auto) (0.0-15.0) % Eos % (Auto) (0.0-7.0) % Baso % (Auto) (0.0-1.5) % Neut # (Auto) (1.4-5.7) K/uL Lymph # (Auto) (0.6-2.4) K/uL [place] # (Auto) (0.0-0.8) K/uL Eos # (Auto) (0.0-0.7) K/uL Baso # (Auto) (0.0-0.1) K/uL Nucleated RBC % /100WBC Nucleated RBCs # K/uL APTT 59.8 H (18.6-31.3) SEC Sodium (136-145) mmol/L Potassium (3.5-5.1) mmol/L Chloride (98-107) mmol/L Carbon Dioxide (21.0-32.0) mmol/L BUN (7.0-18.0) mg/dL Creatinine (0.6-1.0) mg/dL Est Cr Clr Drug Dosing mL/min Estimated GFR (MDRD) ml/min Glucose (74-106) mg/dL POC Glucose 132 H (70-99) mg/dL Calcium (8.5-10.1) mg/dL Med Orders - Current: Current Medications Acetaminophen (Acetaminophen 325 Mg Tab) 650 mg PO Q4H PRN PRN Reason: Pain (Mild 1-3)/fever Albuterol/Ipratropium (Albuterol/Ipratropium 3.0-0.5 Mg/3 Ml Neb Soln) 3 ml NEB Q4HRRT PRN PRN Reason: SOB/wheezing Apixaban (Apixaban 5 Mg Tab) 10 mg PO BID ONE Stop: 12/30/20 17:01 Atorvastatin Calcium (Atorvastatin 40 Mg Tab) 80 mg PO BEDTIME [facility] Last Admin: 12/29/20 20:34 Dose: 80 mg Documented by: Carvedilol (Carvedilol 3.125 Mg Tab) 6.25 mg PO BID [facility] Last Admin: 12/30/20 08:53 Dose: 6.25 mg Documented by: Dextrose/Water (50% Dextrose In Water 50 Ml Syringe) 50 ml IV ASDIRECTED PRN PRN Reason: Hypoglycemia Furosemide (Furosemide 40 Mg Tab) 40 mg PO DAILY [facility] Last Admin: 12/30/20 08:53 Dose: 40 mg Documented by: Glucagon (Glucagon,Human Recombinant 1 Mg Vial) 1 mg IM ASDIRECTED PRN PRN Reason: Hypoglycemia Heparin Sodium/Sodium Chloride (Heparin 25,000 Units In 1/2 Ns 500 Ml) 500 mls @ 21.228 mls/hr IV TITRATE [facility]; Protocol Last Titration: 12/30/20 09:55 Dose: 9 units/kg/hr, 10.614 mls/hr Documented by: Insulin Aspart (Insulin Aspart 100 Units/Ml 3 Ml Pen) 0 unit SUBCUT TIDAC [facility]; Protocol Last Admin: 12/30/20 12:12 Dose: Not Given Documented by: Losartan Potassium (Losartan 50 Mg Tab) 50 mg PO BEDTIME [facility] Last Admin: 12/29/20 20:34 Dose: 50 mg Documented by: Multivitamins/Minerals/Vitamin C (Multivitamin Tab) 1 tab PO DAILY [facility] Last Admin: 12/30/20 08:53 Dose: 1 tab Documented by: Omeprazole (Omeprazole 20 Mg Cap.Cr) 20 mg PO ACBREAKFAST PRN PRN Reason: Heartburn Last Admin: 12/29/20 08:02 Dose: 20 mg Documented by: Ondansetron HCl (Ondansetron 4 Mg/2 Ml Sdv) 4 mg IVPUSH Q4H PRN PRN Reason: Nausea Tofacitinib Citrate [Xeljanz] 5 Mg Tablet 1 each PO BID [facility] Last Admin: 12/30/20 08:56 Dose: Not Given Documented by: Sodium Chloride (Sodium Chloride 0.9% 2.5 Ml Syringe) 2.5 ml FLUSH ASDIRECTED PRN PRN Reason: Keep Vein Open Topiramate (Topiramate 50 Mg Tab) 25 mg PO BID [facility] Last Admin: 12/30/20 08:53 Dose: 25 mg Documented by: Venlafaxine HCl (Venlafaxine 75 Mg Cap.Er) 150 mg PO DAILY [facility] Last Admin: 12/30/20 08:53 Dose: 150 mg Documented by: Discontinued Medications Albuterol/Ipratropium (Albuterol/Ipratropium 3.0-0.5 Mg/3 Ml Neb Soln) 3 ml NEB ONETIME ONE Stop: 12/28/20 13:04 Last Admin: 12/28/20 13:14 Dose: 3 ml Documented by: Carvedilol (Carvedilol 6.25 Mg Tab) 6.25 mg PO BID [facility] Last Admin: 12/29/20 09:39 Dose: 6.25 mg Documented by: Heparin Sodium (Porcine) (Heparin Sodium 5,000 Units/Ml Vial) 4,712 units IVPUSH .BOLUS ONE; Protocol Stop: 12/28/20 15:20 Last Admin: 12/28/20 15:42 Dose: 4,712 units Documented by: Magnesium Sulfate (Magnesium Sulfate In Water 2 Gm/50 Ml) 2 gm in 50 mls @ 50 mls/hr IV ONETIME ONE Stop: 12/29/20 11:29 Last Admin: 12/29/20 10:49 Dose: 50 mls/hr Documented by: Iopamidol (Iopamidol 755 Mg/Ml 500 Ml Multipack Bottle) 68 ml IVPUSH ONETIME ONE Stop: 12/28/20 13:55 Last Admin: 12/28/20 13:56 Dose: 68 ml Documented by: Potassium Chloride (Potassium Chloride 20 Meq Tab.Er) 40 meq PO ONETIME ONE Stop: 12/29/20 09:56 Last Admin: 12/29/20 10:35 Dose: 40 meq Documented by: Sodium Chloride (Sodium Chloride 0.9% 10 Ml Syringe) 10 ml FLUSH ASDIRECTED PRN PRN Reason: Keep Vein Open Last Admin: 12/28/20 12:03 Dose: 10 ml Documented by: Sodium Chloride (Sodium Chloride 0.9% 2.5 Ml Syringe) 2.5 ml FLUSH ASDIRECTED PRN PRN Reason: Keep Vein Open Last Admin: 12/28/20 12:03 Dose: 2.5 ml Documented by:
[2020-12-30 15:49] VITALS: BP 145/74; PULSE 78
[2020-12-30] MEDS ORDERED: Apixaban 5 MG Tab PO ONE (17:00)
[2020-12-30] MEDS ORDERED: Apixaban 5 MG Tab ONE (17:00)
== END 2020-12-30 17:00 | disposition home or self-care (01) | DRG 176 ==
LOC: MW.ED 11:30 → MW.MS 14:45
PROVIDERS: ADMIT Student in an Organized Health Care Education/Training Program; ATTEND Student in an Organized Health Care Education/Training Program
DX: I26.99 Other pulmonary embolism without acute cor pulmonale (principal); I26.94 Multiple subsegmental thrombotic pulmonary emboli without acute cor pulmonale; I11.0 Hypertensive heart disease with heart failure; E11.9 Type 2 diabetes mellitus without complications; I50.9 Heart failure, unspecified; M06.9 Rheumatoid arthritis, unspecified; E78.5 Hyperlipidemia, unspecified; Z66 Do not resuscitate; K57.90 Diverticulosis of intestine, part unspecified, without perforation or abscess without bleeding; K21.9 Gastro-esophageal reflux disease without esophagitis; Z20.822 Contact with and (suspected) exposure to COVID-19; M19.90 Unspecified osteoarthritis, unspecified site; M10.9 Gout, unspecified; F41.9 Anxiety disorder, unspecified; F32.9 Major depressive disorder, single episode, unspecified; J44.9 Chronic obstructive pulmonary disease, unspecified; E78.00 Pure hypercholesterolemia, unspecified; J30.9 Allergic rhinitis, unspecified; H54.7 Unspecified visual loss; Z85.3 Personal history of malignant neoplasm of breast; Z87.891 Personal history of nicotine dependence; Z91.09 Other allergy status, other than to drugs and biological substances; Z88.1 Allergy status to other antibiotic agents; Z79.899 Other long term (current) drug therapy; Z79.52 Long term (current) use of systemic steroids; Z90.49 Acquired absence of other specified parts of digestive tract; Z90.710 Acquired absence of both cervix and uterus; Z98.49 Cataract extraction status, unspecified eye; Z88.8 Allergy status to other drugs, medicaments and biological substances; Z91.048 Other nonmedicinal substance allergy status
CPT/HCPCS: 36415; 71046; 71275; 80053; 83615; 83880; 84484; 85025; 85379; 93005; 94640; 99285; Q9967; 80048; 81241; 82947; 83735; 85302; 85303; 85305; 85306; 85610; 85730; A9270-GY; J1644; J1815-GY; J3475; J7620-GY; U0002

== ENCOUNTER 2021-03-12 15:17 | Emergency (ER) | payer MEDICARE, OTHER ==
[2021-03-12] MEDS ORDERED: Sodium Chloride 0.9% 10 ML Syringe FLUSH PRN (15:21)
[2021-03-12] MEDS ORDERED: Sodium Chloride 0.9% 2.5 ML Syringe FLUSH PRN (15:21)
--- NOTE | 2021-03-12 15:28 | EDM.PDOC ---
ED HPI GENERAL MEDICAL PROBLEM - General Stated Complaint: PER DOCTOR Time Seen by Provider: 03/12/21 15:20 - History of Present Illness INITIAL COMMENTS - FREE TEXT/NARRATIVE: History of present illness: [] The patient fell off a kitchen stool yesterday. She injured her back. She also does not remember she hit her head. She does not have any definite LOC. She does have a headache some neck pain and low back pain. It hurts to move and breathe. The patient is on Eliquis for recent discovery of blood clots in her lungs 2 months ago. She has no nausea vomiting or diaphoresis. Review of systems: As per history of present illness and below otherwise all systems reviewed and negative. Past medical history: As per history of present illness and as reviewed below otherwise noncontributory. Surgical history: As per history of present illness and as reviewed below otherwise noncontributory. Social history: No reported history of drug or alcohol abuse. Family history: As per history of present illness and as reviewed below otherwise n oncontributory. Physical exam: Constitutional - well developed, well-nourished and in no acute distress HEENT - normocephalic, no evidence of trauma - external nose and mouth normal - no mass in neck and no JVD - mucosae moist EYES - full EOM, PERRL, no icterus - no evidence of inflammation, injection, or drainage Respiratory - no respiratory distress, equal bilateral expansion, lungs clear to auscultation and no abnormal lung sounds Cardiovascular - Regular Rhythm with S1 and S2 appreciated and no murmur, gallop or rub. GI -tenderness of the abdomen and the right hypogastrium. Abdomen soft without distension or organomegaly - normal bowel sounds - no guard or rebound Musculoskeletal tenderness of the cervical spine. Tenderness of the low lumbar spine. Ecchymosis bruising in the right flank. No gross deformity of long bones or joints - no tenderness, swelling or edema Neurologic - Alert and oriented times four - CN II-XII grossly intact - motor sensory and coordination symmetrically normal Psychiatric - appropriate mood and affect with normal thought content Hematologic - No petechiae or purpura - mucosa appropriate color and sclera not pale - normal nail bed color and refill Integument - no rash or evidence of trauma - normal turgor Diagnostics: [] Therapeutics: [] Impression: [] Plan: [] Definitive disposition and diagnosis as appropriate pending reevaluation and review of above. right back, flank Pain Score (Numeric/FACES): 9 - Related Data Allergies Allergy/AdvReac Type Severity Reaction Status Date / Time adhesive tape Allergy Rash Verified 03/12/21 15:30 erythromycin base Allergy Anaphylactic Verified 03/12/21 15:30 Shock hydroxychloroquine Allergy Anaphylactic Verified 03/12/21 15:30 Shock lisinopril Allergy Cough Verified 03/12/21 15:30 Home Meds: Home Meds Methotrexate 7.5 mg PO WEEKLY 02/11/17 [History] Ascorbic Acid [C-1000] 1,000 mg PO DAILY 12/28/20 [History] Cholecalciferol (Vitamin D3) [Vitamin D3] 25 mcg PO DAILY 12/28/20 [History] Diclofenac Sodium [Voltaren] 4 gm TOP TID 12/28/20 [History] Ferrous Sulfate 325 mg PO BID 12/28/20 [History] Folic Acid 1 mg PO DAILY 12/28/20 [History] Furosemide 40 mg PO DAILY 12/28/20 [History] Losartan [Cozaar] 50 mg PO BEDTIME 12/28/20 [History] Multivitamin 1 tab PO DAILY 12/28/20 [History] Omeprazole 20 mg PO DAILY PRN 12/28/20 [History] Potassium Chloride 8 meq PO BID 12/28/20 [History] Tofacitinib Citrate [Xeljanz] 5 mg PO BID 12/28/20 [History] Topiramate 25 mg PO BID 12/28/20 [History] Venlafaxine HCl [Venlafaxine ER] 150 mg PO DAILY 12/28/20 [History] atorvaSTATin [Lipitor] 80 mg PO DAILY 12/28/20 [History] carvediloL [Carvedilol] 6.25 mg PO BID 12/28/20 [History] predniSONE [Prednisone] 20 mg PO WEEKLY 12/28/20 [History] Apixaban [Eliquis] 5 - 10 mg PO BID #74 tablet 12/30/20 [Rx] Past Medical History HEENT History: Reports: Allergic Rhinitis, Cataract, Other (See Below) Other HEENT History: wears glasses, has upper partial removable denture Cardiovascular History: Reports: Heart Failure, High Cholesterol, Hypertension Respiratory History: Reports: COPD, PE Gastrointestinal History: Reports: Colon Polyp, Diverticulosis, GERD, Pancreatitis, Other (See Below) Other Gastrointestinal History: currently no symptoms, has stopped Omeprazole Genitourinary History: Reports: None 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: Musculoskeletal History: Reports: Gout, Neck Pain, Chronic, Osteoarthritis, Other (See Below) Other Musculoskeletal History: Degenerative spinal disease Neurological History: Reports: Concussion, Other (See Below) Other Neuro History: Brain tumor shrunk with gamma knife 2000 Psychiatric History: Reports: Anxiety, Depression Endocrine/Metabolic History: Reports: Diabetes, Type II Other Endocrine/Metabolic History: diabetes is diet controlled- no meds Oncologic (Cancer) History: Reports: Breast - Infectious Disease History Infectious Disease History: Reports: None - Past Surgical History Head Surgeries/Procedures: Reports: Other (See Below) HEENT Surgical History: Reports: Cataract Surgery Other HEENT Surgeries/Procedures: Brain tumor Gamma KNife surgery Cardiovascular Surgical History: Reports: None Respiratory Surgical History: Reports: None GI Surgical History: Reports: Appendectomy, Other (See Below) Other GI Surgeries/Procedures: Exploratory laparotomy for "tumors" Female Surgical History: Reports: Breast Biopsy, Section, Hys terectomy, Salpingo-Oophorectomy Other Female Surgeries/Procedures: left breast lumpectomy for malignancy- lymph nodes removed Endocrine Surgical History: Reports: None Neurological Surgical History: Reports: C-Spine Musculoskeletal Surgical History: Reports: None, Other (See Below) Other Musculoskeletal Surgeries/Procedures:: Cervical spine surgery 1 month ago with titanium implants. Oncologic Surgical History: Reports: Lumpectomy Other Oncologic Surgeries/Procedures: Lymph Node Disection with Chemo Dermatological Surgical History: Reports: Plastic Surgical Reconstruction/Repair Social & Family History - Family History Family Medical History: No Pertinent Family History - Caffeine Use Caffeine Use: Reports: Tea ED ROS GENERAL - Review of Systems Review Of Systems: Comprehensive ROS is negative, except as noted in HPI. ED EXAM, GENERAL - Physical Exam Exam: See Below Free Text/Narrative:: My physical exam is in the HPI #1 Interpretation EKG Interpretation Comments: EKG sinus rhythm heart rate 90 [place] interval 179 QT duration [address] [place] [address]. Normal QRS [address] and T. Compared to 12/28/2020 no change. Impression normal Course - Vital Signs Text/Narrative:: 1820 8 reexamined the patient after CTs are back there is nothing acute except a rib fracture. Discharged in satisfactory condition with her . Last Recorded V/S: Last Vital Signs Temp 36.8 C 03/12/21 17:35 Pulse 76 03/12/21 17:35 Resp 18 03/12/21 17:35 BP 148/74 H 03/12/21 17:35 Pulse Ox 98 03/12/21 17:35 - Orders/Labs/Meds Orders: Active Orders 24 hr Category Date Time Status Sodium Chloride 0.9% [Saline Flush] Med 03/12/21 15:21 Active 10 ml FLUSH ASDIRECTED PRN Sodium Chloride 0.9% [Saline Flush] Med 03/12/21 15:21 Active 2.5 ml FLUSH ASDIRECTED PRN Saline Lock Insert [OM.PC] Stat Oth 03/12/21 15:21 Ordered Medication Orders Sodium Chloride (Sodium Chloride 0.9% 10 Ml Syringe) 10 ml FLUSH ASDIRECTED PRN PRN Reason: Keep Vein Open Sodium Chloride (Sodium Chloride 0.9% 2.5 Ml Syringe) 2.5 ml FLUSH ASDIRECTED PRN PRN Reason: Keep Vein Open Labs: Laboratory Tests 03/12/21 03/12/21 03/12/21 Range/Units 15:24 15:24 15:24 WBC 7.40 (4.0-11.0) K/uL RBC 3.24 L (4.30-5.90) M/uL Hgb 11.8 L (12.0-16.0) g/dL Hct 33.9 L (36.0-46.0) % MCV 104.6 H (80.0-98.0) fL MCH 36.4 H (27.0-32.0) pg MCHC 34.8 (31.0-37.0) g/dL RDW Std Deviation 54.3 (28.0-62.0) fl RDW Coeff of Carolyn 14 (11.0-15.0) % Plt Count 234 (150-400) K/uL MPV 10.50 (7.40-12.00) fL Neut % (Auto) 71.8 (48.0-80.0) % Lymph % (Auto) 19.1 (16.0-40.0) % [place] % (Auto) 8.6 (0.0-15.0) % Eos % (Auto) 0.4 (0.0-7.0) % Baso % (Auto) 0.1 (0.0-1.5) % Neut # (Auto) 5.3 (1.4-5.7) K/uL Lymph # (Auto) 1.4 (0.6-2.4) K/uL [place] # (Auto) 0.6 (0.0-0.8) K/uL Eos # (Auto) 0.0 (0.0-0.7) K/uL Baso # (Auto) 0.0 (0.0-0.1) K/uL Nucleated RBC % 0.6 /100WBC Nucleated RBCs # 0 K/uL INR 1.08 APTT (18.6-31.3) SEC Sodium 147 H (136-145) mmol/L Potassium 3.1 L (3.5-5.1) mmol/L Chloride 107 (98-107) mmol/L Carbon Dioxide 26.4 (21.0-32.0) mmol/L BUN 21 H (7.0-18.0) mg/dL Creatinine 1.2 H (0.6-1.0) mg/dL Est Cr Clr Drug Dosing 30.89 mL/min Estimated GFR (MDRD) 44.3 ml/min Glucose 148 H (74-106) mg/dL Calcium 8.2 L (8.5-10.1) mg/dL Total Bilirubin 1.8 H (0.2-1.0) mg/dL AST 56 H (15-37) IU/L ALT 44 (14-63) IU/L Alkaline Phosphatase 59 (46-116) U/L Total Protein 6.9 (6.4-8.2) g/dL Albumin 3.9 (3.4-5.0) g/dL Globulin 3.0 (2.6-4.0) g/dL Albumin/Globulin Ratio 1.3 (0.9-1.6) Lipase 222 (73-393) U/L Urine Color Urine Appearance Urine pH (5.0-8.0) Ur Specific [place] (1.001-1.035) Urine Protein (NEGATIVE) mg/dL Urine Glucose (UA) (NEGATIVE) mg/dL Urine Ketones (NEGATIVE) mg/dL Urine Occult Blood (NEGATIVE) Urine Nitrite (NEGATIVE) Urine Bilirubin (NEGATIVE) Urine Urobilinogen (<2.0) EU/dL Ur Leukocyte Esterase (NEGATIVE) Urine RBC (0-2/HPF) Urine WBC (0-5/HPF) Ur Epithelial Cells (NONE-FEW) Urine Bacteria (NEGATIVE) 03/12/21 03/12/21 Range/Units 15:24 15:58 WBC (4.0-11.0) K/uL RBC (4.30-5.90) M/uL Hgb (12.0-16.0) g/dL Hct (36.0-46.0) % MCV (80.0-98.0) fL MCH (27.0-32.0) pg MCHC (31.0-37.0) g/dL RDW Std Deviation (28.0-62.0) fl RDW Coeff of Carolyn (11.0-15.0) % Plt Count (150-400) K/uL MPV (7.40-12.00) fL Neut % (Auto) (48.0-80.0) % Lymph % (Auto) (16.0-40.0) % [place] % (Auto) (0.0-15.0) % Eos % (Auto) (0.0-7.0) % Baso % (Auto) (0.0-1.5) % Neut # (Auto) (1.4-5.7) K/uL Lymph # (Auto) (0.6-2.4) K/uL [place] # (Auto) (0.0-0.8) K/uL Eos # (Auto) (0.0-0.7) K/uL Baso # (Auto) (0.0-0.1) K/uL Nucleated RBC % /100WBC Nucleated RBCs # K/uL INR APTT 22.9 (18.6-31.3) SEC Sodium (136-145) mmol/L Potassium (3.5-5.1) mmol/L Chloride (98-107) mmol/L Carbon Dioxide (21.0-32.0) mmol/L BUN (7.0-18.0) mg/dL Creatinine (0.6-1.0) mg/dL Est Cr Clr Drug Dosing mL/min Estimated GFR (MDRD) ml/min Glucose (74-106) mg/dL Calcium (8.5-10.1) mg/dL Total Bilirubin (0.2-1.0) mg/dL AST (15-37) IU/L ALT (14-63) IU/L Alkaline Phosphatase (46-116) U/L Total Protein (6.4-8.2) g/dL Albumin (3.4-5.0) g/dL Globulin (2.6-4.0) g/dL Albumin/Globulin Ratio (0.9-1.6) Lipase (73-393) U/L Urine Color YELLOW Urine Appearance CLEAR Urine pH 6.0 (5.0-8.0) Ur Specific [place] 1.010 (1.001-1.035) Urine Protein NEGATIVE (NEGATIVE) mg/dL Urine Glucose (UA) NEGATIVE (NEGATIVE) mg/dL Urine Ketones NEGATIVE (NEGATIVE) mg/dL Urine Occult Blood NEGATIVE (NEGATIVE) Urine Nitrite NEGATIVE (NEGATIVE) Urine Bilirubin NEGATIVE (NEGATIVE) Urine Urobilinogen 0.2 (<2.0) EU/dL Ur Leukocyte Esterase TRACE H (NEGATIVE) Urine RBC 0-1 (0-2/HPF) Urine WBC 0-1 (0-5/HPF) Ur Epithelial Cells OCCASIONAL (NONE-FEW) Urine Bacteria RARE (NEGATIVE) Meds: Medications Generic Name Dose Route Start Last Admin Trade Name Freq PRN Reason Stop Dose Admin Sodium Chloride 10 ml 03/12/21 15:21 Sodium Chloride 0.9% 10 Ml Syringe FLUSH ASDIRECTED PRN Keep Vein Open Sodium Chloride 2.5 ml 03/12/21 15:21 Sodium Chloride 0.9% 2.5 Ml Syringe FLUSH ASDIRECTED PRN Keep Vein Open Discontinued Medications Generic Name Dose Route Start Last Admin Trade Name Freq PRN Reason Stop Dose Admin Iopamidol 100 ml 03/12/21 16:06 03/12/21 16:06 Iopamidol 755 Mg/Ml 500 Ml Multipack Bottle IVPUSH 03/12/21 16:07 100 ml ONETIME STA Administration Departure - Departure Time of Disposition: 18:22 Disposition: Home, Self-Care 01 Condition: Good Clinical Impression: Fall, Multiple contusions, Fracture, rib, Contusion of back - Discharge Information Referrals: PCP,Unknown [Primary Care Provider] - Additional Instructions: Return if dizzy weak passing out or passing blood. [facility] [address] [place] [id number] [facility] [address] [place] [id number] The following information is given to patients seen in the emergency department who are being discharged to home. This information is to outline your options for follow-up care. We provide all patients seen in our emergency department with a follow-up referral. The need for follow-up, as well as the timing and circumstances, are variable depending upon the specifics of your emergency department visit. If you don't have a primary care physician on staff, we will provide you with a referral. We always advise you to contact your personal physician following an emergency department visit to inform them of the circumstance of the visit and for follow-up with them and/or the need for any referrals to a consulting specialist. The emergency department will also refer you to a specialist when appropriate. This referral assures that you have the opportunity for follow-up care with a specialist. All of these measure are taken in an effort to provide you with optimal care, which includes your follow-up. Under all circumstances we always encourage you to contact your private physician who remains a resource for coordinating your care. When calling for follow-up care, please make the office aware that this follow-up is from your recent emergency room visit. If for any reason you are refused follow-up, please contact the Emergency Department at and asked to speak to the emergency department charge nurse. Sepsis Event Note (ED) - Focused Exam Vital Signs: Vital Signs Temp Pulse Resp BP Pulse Ox 03/12/21 17:35 36.8 C 76 18 148/74 H 98 03/12/21 16:45 74 18 153/71 H 98 03/12/21 15:27 36.2 C 89 20 171/97 H 98 - My Orders Last 24 Hours: My Active Orders 03/12/21 15:21 Sodium Chloride 0.9% [Saline Flush] 10 ml FLUSH ASDIRECTED PRN Sodium Chloride 0.9% [Saline Flush] 2.5 ml FLUSH ASDIRECTED PRN Saline Lock Insert [OM.PC] Stat - Assessment/Plan Last 24 Hours: My Active Orders 03/12/21 15:21 Sodium Chloride 0.9% [Saline Flush] 10 ml FLUSH ASDIRECTED PRN Sodium Chloride 0.9% [Saline Flush] 2.5 ml FLUSH ASDIRECTED PRN Saline Lock Insert [OM.PC] Stat
[2021-03-12] MEDS ORDERED: Iopamidol 755 MG/ML 500 ML Multipack Bottle IVPUSH STA (16:06)
[2021-03-12 16:27] LABS: CARBON DIOXIDE,CO2 26.4 mmol/L (21.0-32.0); POTASSIUM,K 3.1 mmol/L (3.5-5.1)
--- NOTE | 2021-03-12 16:47 | CT ---
INDICATION: trauma, fall, blood thinners TECHNIQUE: CT of the head without contrast. Coronal and sagittal reformats. Bone and soft tissue algorithms. COMPARISON: No prior studies available for comparison at this institution. FINDINGS: No acute intracranial hemorrhage or extra-axial collection. No evidence of acute cortical infarction. 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 No mass effect or midline shift. Mild generalized cerebral/cerebellar parenchymal volume loss. Mild regions of decreased attenuation within the periventricular and subcortical white matter of both cerebral hemispheres most likely reflects chronic microvascular ischemic disease and age related change in this patient. Vascular calcifications within the carotid siphons. Orbital contents are normal. No calvarial fractures. No lytic or sclerotic osseous lesions within the calvarium or skull base. Scalp and other imaged soft tissue structures are normal. Mastoid air cells are clear. IMPRESSION: 1. No acute intracranial abnormality. 2. 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 Please note that all CT scans at this facility use dose modulation, iterative reconstruction, and/or weight-based dosing when appropriate to reduce radiation dose to as low as reasonably achievable. Dictated by Darrel Silva MD @ 03/12/2021 4:44:[address] Darrel Silva @ Mar 12 2021 4:44PM
--- NOTE | 2021-03-12 16:51 | CT ---
Indication: trauma, fall, blood thinners Technique: Noncontrast axial CT of the cervical spine with coronal and sagittal reformats are provided. Comparison: No prior studies available for comparison at this institution. Findings: No fractures. Anterolisthesis at C3-4 and C4-5. Postoperative changes of anterior cervical discectomy and fusion at C5-C7. The right C5 screw terminates and the interspace. There is mature fusion at C6-7 with nonunion at C5-6. The lung apices are clear. C1-2: No spinal canal stenosis. C2-3: Advanced left facet arthrosis. Moderate left neural foramen narrowing. No central canal or right neural foraminal narrowing. C3-4: Anterolisthesis. Advanced facet arthrosis. Moderate neural foramina narrowing bilaterally. No spinal canal stenosis. C4-5: Grade 1 anterolisthesis. Advanced left and moderate right facet arthrosis. Severe left neural foramina narrowing. Left uncinate spurring. No significant central canal or right neural narrowing. C5-6: Postoperative changes. Residual endplate osteophytic spurring contributes to [id number] spinal canal stenosis. Moderate neural foraminal narrowing bilaterally due to uncinate spurring and facet arthrosis. C6-7: Residual posterior endplate osteophytic spurring results in at least mild spinal canal narrowing. Moderate left neural foraminal narrowing due to uncinate spurring. C7-T1: Grade 1 anterolisthesis. No spinal canal stenosis or neural foramina narrowing. Moderate facet arthrosis. T1-2: No spinal canal stenosis or neural foramina narrowing. Impression: 1. No evidence of acute osseous abnormality. 2. Postoperative changes of anterior cervical discectomy and fusion at C5-C7. The right C5 screw terminates and the interspace. There is mature fusion at C6-7 with nonunion at C5-6. 3. Multilevel cervical spondylosis detailed above. Please note that all CT scans at this facility use dose modulation, iterative reconstruction, and/or weight-based dosing when appropriate to reduce radiation dose to as low as reasonably achievable. Dictated by Darrel Silva MD @ 03/12/2021 4:49:[address] Darrel Silva @ Mar 12 2021 4:49PM
--- NOTE | 2021-03-12 17:43 | CT ---
DATE: 03/12/2021. CLINICAL HISTORY: Trauma, fall on blood thinners. TECHNIQUE: Helical CT acquisition of the lumbar spine was performed. Coronal and sagittal reformations were performed and interpreted. COMPARISON: None available. FINDINGS: There is no evidence of acute displaced fracture or traumatic malalignment of the lumbar spine. Vertebral body heights are maintained without evidence of significant compression deformity. Lumbar spondylosis with multilevel facet arthropathy, most pronounced in the lower lumbar spine. No severe central canal stenosis. At L4-5, disc bulge, advanced bilateral facet arthropathy, and hypertrophy of the ligamentum flavum results in at least mild to moderate central canal stenosis. Varying degrees of multilevel foraminal narrowing. The paravertebral soft tissues are unremarkable. IMPRESSION: 1. No acute displaced fracture or traumatic malalignment of the lumbar spine. 2. Lumbar spondylosis with multilevel facet arthropathy, most pronounced in the lower lumbar spine. 3. At L4-5, there is [id number] central canal stenosis. 4. Varying degrees of multilevel foraminal narrowing. Please note that all CT scans at this facility use dose modulation, iterative reconstruction, and/or weight-based dosing when appropriate to reduce radiation dose to as low as reasonably achievable. Dictated by Stefan Grewal MD @ 03/12/2021 5:41:[address] Stefan Grewal @ Mar 12 2021 5:41PM
--- NOTE | 2021-03-12 17:43 | CT ---
INDICATION: Pain after fall. Patient on blood thinners. COMPARISON: None available TECHNIQUE: CT examination of the abdomen and pelvis was performed with the uneventful intravenous administration of 100 cc of Isovue 370 while 3 mm thick axial sections were obtained from the lung bases through the pubic symphysis. Oral contrast was not administered. Please note that all CT scans at this facility use dose modulation, iterative reconstruction, and/or weight-based dosing when appropriate to reduce radiation dose to as low as reasonably achievable. FINDINGS: There is mild contusion of the posterior right paramedian lower chest and upper back without a distinct hematoma. There is an acute, mildly displaced fracture of the right posterior 11th rib, with no sign of hematoma in the adjacent posterior aspect of the right lobe of the liver. In the abdomen, the liver is slightly low in density, representing mild fatty infiltration. There is no sign of mass. The spleen has a small cyst in the medial interpolar region and is otherwise normal in appearance. The pancreas and adrenals are normal in appearance. The kidneys are normal in appearance. The gallbladder is normal in appearance. The abdominal aorta is normal in caliber with no sign of dilatation. There is no sign of retroperitoneal mass or adenopathy. The stomach and loops of small bowel in the abdomen are normal in appearance. There is mild diverticulosis of the colon of the hepatic and splenic flexures with no sign of diverticulitis. In the pelvis, the appendix is nonvisualized, but there is no sign of an inflammatory process in the area of the appendix. There is moderate sigmoid diverticulosis without evidence of diverticulitis. The loops of small bowel and colon in the pelvis are otherwise normal in appearance. The uterus is absent and the adnexal regions are normal in appearance. The urinary bladder is normal in appearance. There is no sign of pelvic or inguinal mass or adenopathy. There is no sign of free air or free fluid in the abdomen or pelvis. The lung bases are clear. The rest of the structures are normal in appearance for the patient`s age. There is no sign of fracture of the lumbar spine, pelvis, or hips. IMPRESSION: CT of the abdomen shows moderate contusion of the posterior paramedian right lower chest and upper abdomen without distinct hematoma. Acute, mildly displaced fracture of the right posterior 11th rib with no sign of any hematoma in the associated liver. Mild fatty infiltration of the liver. Mild diverticulosis of the colon in the hepatic and splenic flexures CT of the pelvis shows moderate sigmoid diverticulosis with no sign of diverticulitis. Status post hysterectomy. Please note that all CT scans at this facility use dose modulation, iterative reconstruction, and/or weight-based dosing when appropriate to reduce radiation dose to as low as reasonably achievable. Dictated by Nikko Williamson MD @ 03/12/2021 5:42:[address] Nikko Williamson @ Mar 12 2021 5:42PM
--- NOTE | 2021-03-12 17:45 | CT ---
DATE: 03/12/2021. CLINICAL HISTORY: Trauma, fall on blood thinners. TECHNIQUE: Helical CT acquisition of the thoracic spine was performed. Coronal and sagittal reformations were performed and interpreted. COMPARISON: None available. FINDINGS: Partial visualization C5-7 ACDF, better assessed on the same day CT cervical spine examination. There is no evidence of acute displaced fracture or traumatic malalignment of the thoracic spine. Vertebral body heights are maintained without evidence of significant compression deformity. Multilevel scattered degenerative changes throughout the thoracic spine. No evidence of severe central canal stenosis. Incidental note is made of a small hiatal hernia. IMPRESSION: 1. No acute displaced fracture or traumatic malalignment of the thoracic spine. 2. Multilevel degenerative changes throughout the thoracic spine without evidence of severe central canal stenosis. Please note that all CT scans at this facility use dose modulation, iterative reconstruction, and/or weight-based dosing when appropriate to reduce radiation dose to as low as reasonably achievable. Dictated by Stefan Grewal MD @ 03/12/2021 5:44:[address] Stefan Grewal @ Mar 12 2021 5:44PM
--- NOTE | 2021-03-12 17:53 | CT ---
INDICATION: Pain after fall. Patient on blood thinners. COMPARISON: CT of the abdomen and pelvis from today. TECHNIQUE: : CT examination of the chest was performed with the uneventful intravenous administration of Isovue 370 as part of the accompanying CT of the abdomen and pelvis while 2.5 mm thick axial sections were obtained from above the apices of the lungs to the lung bases. Please note that all CT scans at this facility use dose modulation, iterative reconstruction, and/or weight-based dosing when appropriate to reduce radiation dose to as low as reasonably achievable. FINDINGS: : There is mild linear density and consolidation in the posterior-lateral left lung base extending to the pleural surface, atelectasis versus scarring. Pneumonia cannot be entirely excluded, but I think this is unlikely. There is mild patchy density in the posterior right lung base which is probably atelectasis. There is mild prominence of the interstitial markings in the periphery of the lower lungs, consistent with mild nonspecific pulmonary fibrosis The rest of the chest is clear. There is no sign of pulmonary contusion, pneumothorax, pleural effusion, or pleural hematoma. There is satisfactory and hence meant of the central pulmonary arteries with no sign of pulmonary embolism. There is no sign of mediastinal or hilar mass or adenopathy. There is prominent LAD and LCX coronary calcification versus stenting. There is mild RCA coronary calcification. The heart is top-normal in size. There is age appropriate appearance of the thoracic aorta and ascending great vessels. There is no sign of supraclavicular or axillary mass or adenopathy. The visualized superior liver is low in density representing fatty infiltration. The rest of the liver is normal in appearance. The visualized superior spleen is seem to have a small cyst in the medial interpolar region and is otherwise normal in appearance. The adrenals are normal in appearance. The acute fracture of the posterior right 11th rib is not included on today`s study. This is seen on the accompanying CT of the abdomen and pelvis. There is no sign of fracture of any of the visualized ribs, shoulder girdle, sternum, manubrium, or thoracic spine. There are changes of anterior cervical fusion from C5 through C7 with an anterior metallic plate and anatomic alignment of the fused segments. There is mild, age-appropriate hypertrophic change throughout the thoracic spine. The components of a reverse right total shoulder prosthesis are in anatomic alignment with no sign of fracture, loosening, or dislocation. There is no sign of fracture of the [place] osseous structures. IMPRESSION: No sign of traumatic injury to the chest. The right posterior lower chest wall contusion and the acute, mildly displaced fracture of the right posterior 11th rib are not included on this examination and are seen on the accompanying CT of the abdomen. Mild patchy consolidation in the posterior-lateral left lung base, atelectasis versus scarring. Mild patchy atelectasis in the posterior right lung base. Coronary calcification versus stenting. Please note that all CT scans at this facility use dose modulation, iterative reconstruction, and/or weight-based dosing when appropriate to reduce radiation dose to as low as reasonably achievable. Dictated by Nikko Williamson MD @ 03/12/2021 5:53:[address] Nikko Williamson @ Mar 12 2021 5:53PM
--- NOTE | 2021-03-12 17:58 | CR ---
HISTORY: Pain after fall. COMPARISON: Chest radiograph from 12/28/2020 FINDINGS: A portable erect AP view of the chest was obtained at 16 12 hours. The lungs remain clear. No focal or diffuse infiltrates are present. There is no sign of pneumothorax, pulmonary contusion, pleural hematoma, or pleural effusion. The heart remains normal in size. The mediastinum is normal in appearance. The components of a right total shoulder prosthesis remain in anatomic alignment with no sign of fracture, loosening, or dislocation. There is no sign of fracture of the [place] osseous structures. Again seen is a metallic plate and anchoring screws from anterior cervical fusion. IMPRESSION: No active disease seen in the chest. Dictated by Nikko Williamson MD @ 03/12/2021 5:56:[address] Nikko Williamson @ Mar 12 2021 5:56PM
[2021-03-12 19:31] VITALS: BP 152/67
[2021-03-12 19:32] VITALS: PULSE 78
== END 2021-03-12 19:05 | disposition home or self-care (01) ==
LOC: MW.ED 15:17
DX: S22.31XA Fracture of one rib, right side, initial encounter for closed fracture (principal); S30.0XXA Contusion of lower back and pelvis, initial encounter; E78.00 Pure hypercholesterolemia, unspecified; I11.0 Hypertensive heart disease with heart failure; I50.9 Heart failure, unspecified; J44.9 Chronic obstructive pulmonary disease, unspecified; Z86.711 Personal history of pulmonary embolism; M10.9 Gout, unspecified; E11.9 Type 2 diabetes mellitus without complications; Z91.048 Other nonmedicinal substance allergy status; Z88.1 Allergy status to other antibiotic agents; Z88.8 Allergy status to other drugs, medicaments and biological substances; Z79.899 Other long term (current) drug therapy; Z79.01 Long term (current) use of anticoagulants; W08.XXXA Fall from other furniture, initial encounter
CPT/HCPCS: 36415; 70450; 71045; 71260; 72125; 74177; 80053; 81001; 83690; 85025; 85610; 85730; 93005; 99284; Q9967; 72128-26; 72131-26

== ENCOUNTER 2021-06-04 16:43 | Emergency (ER) | payer MEDICARE, OTHER ==
--- NOTE | 2021-06-04 17:04 | EDM.PDOC ---
<Ganesh Augustin - Last Filed: 06/04/21 18:35> ED HPI GENERAL MEDICAL PROBLEM - General Chief Complaint: Respiratory Problem Stated Complaint: COVID POSITIVE Time Seen by Provider: 06/04/21 16:44 Source of Information: Reports: Patient History Limitations: Reports: No Limitations - History of Present Illness INITIAL COMMENTS - FREE TEXT/NARRATIVE: 70-year-old female past medical history hypertension, hyperlipidemia, rheumatoid arthritis on immunosuppressant, diet-controlled diabetes, pulmonary embolism on Eliquis presents referred from outpatient clinic. Patient notes that she started feeling ill roughly 1 week ago. She is noted shortness of breath, nonproductive cough, mild chest tightness, body aches, generalized weakness, episodic diarrhea. Today she went to outpatient clinic and had a positive Covid test. She is also noted to be hypokalemic and hypoxic on room air. Patient does not wear oxygen at baseline. Patient notes that she did receive the Moderna vaccination for Covid roughly 8 months ago Posterior Back Pain Score (Numeric/FACES): 4 - Related Data Allergies Allergy/AdvReac Type Severity Reaction Status Date / Time adhesive tape Allergy Rash Verified 06/04/21 17:15 erythromycin base Allergy Anaphylactic Verified 06/04/21 17:15 Shock hydroxychloroquine Allergy Anaphylactic Verified 06/04/21 17:15 Shock lisinopril Allergy Cough Verified 06/04/21 17:15 Home Meds: Home Meds Methotrexate 7.5 mg PO WEEKLY 02/11/17 [History] Ascorbic Acid [C-1000] 1,000 mg PO DAILY 12/28/20 [History] Cholecalciferol (Vitamin D3) [Vitamin D3] 25 mcg PO DAILY 12/28/20 [History] Diclofenac Sodium [Voltaren] 4 gm TOP TID 12/28/20 [History] Ferrous Sulfate 325 mg PO BID 12/28/20 [History] Folic Acid 1 mg PO DAILY 12/28/20 [History] Furosemide 40 mg PO DAILY 12/28/20 [History] Losartan [Cozaar] 50 mg PO BEDTIME 12/28/20 [History] Multivitamin 1 tab PO DAILY 12/28/20 [History] Omeprazole 20 mg PO DAILY PRN 12/28/20 [History] Potassium Chloride 8 meq PO BID 12/28/20 [History] Tofacitinib Citrate [Xeljanz] 5 mg PO BID 12/28/20 [History] Topiramate 25 mg PO BID 12/28/20 [History] Venlafaxine HCl [Venlafaxine ER] 150 mg PO DAILY 12/28/20 [History] atorvaSTATin [Lipitor] 80 mg PO DAILY 12/28/20 [History] carvediloL [Carvedilol] 6.25 mg PO BID 12/28/20 [History] predniSONE [Prednisone] 20 mg PO WEEKLY 12/28/20 [History] Apixaban [Eliquis] 5 - 10 mg PO BID #74 tablet 12/30/20 [Rx] Past Medical History HEENT History: Reports: Allergic Rhinitis, Cataract, Other (See Below) Other HEENT History: wears glasses, has upper partial removable denture Cardiovascular History: Reports: Blood Clots/VTE/DVT, Heart Failure, High Cholesterol, Hypertension Respiratory History: Reports: COPD, PE Gastrointestinal History: Reports: Colon Polyp, Diverticulosis, GERD, Pancreatitis, Other (See Below) Other Gastrointestinal History: currently no symptoms, has stopped Omeprazole Genitourinary History: Reports: None 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: Musculoskeletal History: Reports: Gout, Neck Pain, Chronic, Osteoarthritis, Other (See Below) Other Musculoskeletal History: Degenerative spinal disease Neurological History: Reports: Concussion, Other (See Below) Other Neuro History: Brain tumor shrunk with gamma knife 2000 Psychiatric History: Reports: Anxiety, Depression Endocrine/Metabolic History: Reports: Diabetes, Type II Other Endocrine/Metabolic History: diabetes is diet controlled- no meds Oncologic (Cancer) History: Reports: Breast - Infectious Disease History Infectious Disease History: Reports: None - Past Surgical History Head Surgeries/Procedures: Reports: Other (See Below) HEENT Surgical History: Reports: Cataract Surgery Other HEENT Surgeries/Procedures: Brain tumor Gamma KNife surgery Cardiovascular Surgical History: Reports: None Respiratory Surgical History: Reports: None GI Surgical History: Reports: Appendectomy, Other (See Below) Other GI Surgeries/Procedures: Exploratory laparotomy for "tumors" Female Surgical History: Reports: Breast Biopsy, Section, Hysterectomy, Salpingo-Oophorectomy Other Female Surgeries/Procedures: left breast lumpectomy for malignancy- lymph nodes removed Endocrine Surgical History: Reports: None Neurological Surgical History: Reports: C-Spine Musculoskeletal Surgical History: Reports: None, Other (See Below) Other Musculoskeletal Surgeries/Procedures:: Cervical spine surgery 1 month ago with titanium implants. Oncologic Surgical History: Reports: Lumpectomy Other Oncologic Surgeries/Procedures: Lymph Node Disection with Chemo Dermatological Surgical History: Reports: Plastic Surgical Reconstruction/Repair Social & Family History - Family History Family Medical History: No Pertinent Family History - Caffeine Use Caffeine Use: Reports: Tea ED ROS GENERAL - Review of Systems Review Of Systems: Comprehensive ROS is negative, except as noted in HPI. ED EXAM, GENERAL - Physical Exam Exam: See Below Exam Limited By: No Limitations General Appearance: Alert, WD/WN, No Apparent Distress Ears: Hearing Grossly Normal Throat/Mouth: Normal Voice, No Airway Compromise Head: Atraumatic, Normocephalic Neck: Normal Inspection Respiratory/Chest: No Respiratory Distress, Lungs Clear, Normal Breath Sounds, No Accessory Muscle Use Cardiovascular: Normal Peripheral Pulses, Regular Rate, Rhythm GI/Abdominal: Soft, Non-Tender Extremities: Normal Inspection Neurological: Alert, Normal Cognition, Normal Gait Psychiatric: Normal Affect, Normal Mood Skin Exam: Warm, Dry, Intact, Normal Color #1 Interpretation EKG Date: 06/04/21 Time: 17:17 Rhythm: NSR Rate (Beats/Min): 79 [place]: Normal P-Wave: Present QRS: Normal ST-T: Normal QT: Prolonged (561) ME/PQ Interval: 180 EKG Interpretation Comments: normal EKG aside from prolonged QTc Course - Re-Assessments/Exams Free Text/Narrative Re-Assessment/Exam: 06/04/21 18:03 D-dimer is markedly elevated. Will get CTA imaging to assess for PE 06/04/21 18:25 Patient with evidence of VENKAT. Baseline creatinine 1.2, today is 2.2. Patient's renal function does not allow for CTA imaging. Will get CT noncontrast study of the lungs to further characterize Covid. 06/04/21 19:00 Patient CARE transition to Dr. Jaimes pending CT imaging and likely transfer as we do not have any beds available at our hospital. Departure - Departure Disposition: Home, Self-Care 01 Clinical Impression: COVID-19, Hypoxia - Discharge Information Instructions: Hypoxia, COVID-19: How to Protect Yourself and Others - [facility] [place] Referrals: Gutierrez Bose [Primary Care Provider] - Forms: ED Department Discharge Additional Instructions: The following information is given to patients seen in the emergency department who are being discharged to home. This information is to outline your options for follow-up care. We provide all patients seen in our emergency department with a follow-up referral. The need for follow-up, as well as the timing and circumstances, are variable depending upon the specifics of your emergency department visit. If you don't have a primary care physician on staff, we will provide you with a referral. We always advise you to contact your personal physician following an emergency department visit to inform them of the circumstance of the visit and for follow-up with them and/or the need for any referrals to a consulting specialist. The emergency department will also refer you to a specialist when appropriate. This referral assures that you have the opportunity for follow-up care with a specialist. All of these measure are taken in an effort to provide you with optimal care, which includes your follow-up. Under all circumstances we always encourage you to contact your private physician who remains a resource for coordinating your care. When calling for follow-up care, please make the office aware that this follow-up is from your recent emergency room visit. If for any reason you are refused follow-up, please contact the [facility] Emergency Department at and asked to speak to the emergency department charge nurse. Please follow up with your primary care physician. If you do not have a primary care physician, see below: [facility] [address] [place] [id number] [facility] [address] [place] [id number] You were seen today for shortness of breath likely related to your Covid diagnosis. We will like to admit to the hospital however there are no beds in the [facility] and no beds at this hospital. You also do not want to be transferred out of state as well which is understandable you have been doing well on the oxygen with a nasal cannula at a low level we can discharge you home with some oxygen that you can use at home. If you become more short of breath or feel any worse we want you to immediately return to the ED. <Deyvi Jaimes - Last Filed: 06/04/21 22:19> Course - Vital Signs Last Recorded V/S: Last Vital Signs Temp 97.5 F 06/04/21 17:03 Pulse 74 06/04/21 19:30 Resp 22 H 06/04/21 20:51 BP 138/61 06/04/21 20:51 Pulse Ox 100 06/04/21 20:51 - Orders/Labs/Meds Orders: Active Orders 24 hr Category Date Time Status Cardiac Monitoring [RC] . DIRECTED Care 06/04/21 17:14 Active Pulse Oximetry [RC] ASDIRECTED Care 06/04/21 17:14 Active Sodium Chloride 0.9% [Normal Saline] 1,000 ml Med 06/04/21 18:50 Active IV .Bolus Saline Lock Insert [OM.PC] Stat Oth 06/04/21 17:14 Ordered Medication Orders Sodium Chloride (Normal Saline) 1,000 mls @ 250 mls/hr IV .Bolus ONE Stop: 06/04/21 22:49 Last Admin: 06/04/21 19:13 Dose: 250 mls/hr Documented by: BOAZ Labs: Laboratory Tests 06/04/21 06/04/21 06/04/21 Range/Units 17:12 17:12 17:12 WBC 6.60 (4.0-11.0) K/uL RBC 3.17 L (4.30-5.90) M/uL Hgb 11.5 L (12.0-16.0) g/dL Hct 34.5 L (36.0-46.0) % MCV 108.8 H (80.0-98.0) fL MCH 36.3 H (27.0-32.0) pg MCHC 33.3 (31.0-37.0) g/dL RDW Std Deviation 55.8 (28.0-62.0) fl RDW Coeff of Carolyn 14 (11.0-15.0) % Plt Count 188 (150-400) K/uL MPV 10.20 (7.40-12.00) fL Neut % (Auto) 81.2 H (48.0-80.0) % Lymph % (Auto) 9.2 L (16.0-40.0) % [place] % (Auto) 9.4 (0.0-15.0) % Eos % (Auto) 0.2 (0.0-7.0) % Baso % (Auto) 0.0 (0.0-1.5) % Neut # (Auto) 5.4 (1.4-5.7) K/uL Lymph # (Auto) 0.6 (0.6-2.4) K/uL [place] # (Auto) 0.6 (0.0-0.8) K/uL Eos # (Auto) 0.0 (0.0-0.7) K/uL Baso # (Auto) 0.0 (0.0-0.1) K/uL Nucleated RBC % 0.5 /100WBC Nucleated RBCs # 0 K/uL D-Dimer, Quantitative 1.41 H (0.0-0.50) mg/L FEU Sodium 139 (136-145) mmol/L Potassium 5.2 H (3.5-5.1) mmol/L Chloride 104 (98-107) mmol/L Carbon Dioxide 21.0 (21.0-32.0) mmol/L BUN 44 H (7.0-18.0) mg/dL Creatinine 2.2 H (0.6-1.0) mg/dL Est Cr Clr Drug Dosing 16.85 mL/min Estimated GFR (MDRD) 22.0 ml/min Glucose 151 H (74-106) mg/dL Lactic Acid (0.4-2.0) mmol/L Calcium 8.0 L (8.5-10.1) mg/dL Magnesium 2.2 (1.8-2.4) mg/dL Total Bilirubin 0.9 (0.2-1.0) mg/dL AST 95 H (15-37) IU/L ALT 76 H (14-63) IU/L Alkaline Phosphatase 59 (46-116) U/L Troponin I < 0.050 (0.000-0.056) ng/mL C-Reactive Protein 7.00 H (0.00-0.90) mg/dL Total Protein 7.1 (6.4-8.2) g/dL Albumin 3.7 (3.4-5.0) g/dL Globulin 3.4 (2.6-4.0) g/dL Albumin/Globulin Ratio 1.1 (0.9-1.6) Urine Color Urine Appearance Urine pH (5.0-8.0) Ur Specific [place]oun (1.001-1.035) Urine Protein (NEGATIVE) mg/dL Urine Glucose (UA) (NEGATIVE) mg/dL Urine Ketones (NEGATIVE) mg/dL Urine Occult Blood (NEGATIVE) Urine Nitrite (NEGATIVE) Urine Bilirubin (NEGATIVE) Urine Urobilinogen (<2.0) EU/dL Ur Leukocyte Esterase (NEGATIVE) SARS-CoV-2 RNA (ADITHYA) (NEGATIVE) 06/04/21 06/04/21 06/04/21 Range/Units 17:12 17:55 20:26 WBC (4.0-11.0) K/uL RBC (4.30-5.90) M/uL Hgb (12.0-16.0) g/dL Hct (36.0-46.0) % MCV (80.0-98.0) fL MCH (27.0-32.0) pg MCHC (31.0-37.0) g/dL RDW Std Deviation (28.0-62.0) fl RDW Coeff of Carolyn (11.0-15.0) % Plt Count (150-400) K/uL MPV (7.40-12.00) fL Neut % (Auto) (48.0-80.0) % Lymph % (Auto) (16.0-40.0) % [place] % (Auto) (0.0-15.0) % Eos % (Auto) (0.0-7.0) % Baso % (Auto) (0.0-1.5) % Neut # (Auto) (1.4-5.7) K/uL Lymph # (Auto) (0.6-2.4) K/uL [place] # (Auto) (0.0-0.8) K/uL Eos # (Auto) (0.0-0.7) K/uL Baso # (Auto) (0.0-0.1) K/uL Nucleated RBC % /100WBC Nucleated RBCs # K/uL D-Dimer, Quantitative (0.0-0.50) mg/L FEU Sodium 141 (136-145) mmol/L Potassium 4.7 (3.5-5.1) mmol/L Chloride 107 (98-107) mmol/L Carbon Dioxide 21.3 (21.0-32.0) mmol/L BUN 42 H (7.0-18.0) mg/dL Creatinine 1.8 H (0.6-1.0) mg/dL Est Cr Clr Drug Dosing 20.59 mL/min Estimated GFR (MDRD) 27.7 ml/min Glucose 163 H (74-106) mg/dL Lactic Acid 2.3 H* (0.4-2.0) mmol/L Calcium 7.4 L (8.5-10.1) mg/dL Magnesium (1.8-2.4) mg/dL Total Bilirubin (0.2-1.0) mg/dL AST (15-37) IU/L ALT (14-63) IU/L Alkaline Phosphatase (46-116) U/L Troponin I (0.000-0.056) ng/mL C-Reactive Protein (0.00-0.90) mg/dL Total Protein (6.4-8.2) g/dL Albumin (3.4-5.0) g/dL Globulin (2.6-4.0) g/dL Albumin/Globulin Ratio (0.9-1.6) Urine Color Urine Appearance Urine pH (5.0-8.0) Ur Specific [place] (1.001-1.035) Urine Protein (NEGATIVE) mg/dL Urine Glucose (UA) (NEGATIVE) mg/dL Urine Ketones (NEGATIVE) mg/dL Urine Occult Blood (NEGATIVE) Urine Nitrite (NEGATIVE) Urine Bilirubin (NEGATIVE) Urine Urobilinogen (<2.0) EU/dL Ur Leukocyte Esterase (NEGATIVE) SARS-CoV-2 RNA (ADITHYA) POSITIVE H (NEGATIVE) 06/04/21 06/04/21 Range/Units 21:00 21:19 WBC (4.0-11.0) K/uL RBC (4.30-5.90) M/uL Hgb (12.0-16.0) g/dL Hct (36.0-46.0) % MCV (80.0-98.0) fL MCH (27.0-32.0) pg MCHC (31.0-37.0) g/dL RDW Std Deviation (28.0-62.0) fl RDW Coeff of Carolyn (11.0-15.0) % Plt Count (150-400) K/uL MPV (7.40-12.00) fL Neut % (Auto) (48.0-80.0) % Lymph % (Auto) (16.0-40.0) % [place] % (Auto) (0.0-15.0) % Eos % (Auto) (0.0-7.0) % Baso % (Auto) (0.0-1.5) % Neut # (Auto) (1.4-5.7) K/uL Lymph # (Auto) (0.6-2.4) K/uL [place] # (Auto) (0.0-0.8) K/uL Eos # (Auto) (0.0-0.7) K/uL Baso # (Auto) (0.0-0.1) K/uL Nucleated RBC % /100WBC Nucleated RBCs # K/uL D-Dimer, Quantitative (0.0-0.50) mg/L FEU Sodium (136-145) mmol/L Potassium (3.5-5.1) mmol/L Chloride (98-107) mmol/L Carbon Dioxide (21.0-32.0) mmol/L BUN (7.0-18.0) mg/dL Creatinine (0.6-1.0) mg/dL Est Cr Clr Drug Dosing mL/min Estimated GFR (MDRD) ml/min Glucose (74-106) mg/dL Lactic Acid 1.3 (0.4-2.0) mmol/L Calcium (8.5-10.1) mg/dL Magnesium (1.8-2.4) mg/dL Total Bilirubin (0.2-1.0) mg/dL AST (15-37) IU/L ALT (14-63) IU/L Alkaline Phosphatase (46-116) U/L Troponin I (0.000-0.056) ng/mL C-Reactive Protein (0.00-0.90) mg/dL Total Protein (6.4-8.2) g/dL Albumin (3.4-5.0) g/dL Globulin (2.6-4.0) g/dL Albumin/Globulin Ratio (0.9-1.6) Urine Color YELLOW Urine Appearance CLEAR Urine pH 5.5 (5.0-8.0) Ur Specific [place] 1.015 (1.001-1.035) Urine Protein NEGATIVE (NEGATIVE) mg/dL Urine Glucose (UA) NEGATIVE (NEGATIVE) mg/dL Urine Ketones NEGATIVE (NEGATIVE) mg/dL Urine Occult Blood NEGATIVE (NEGATIVE) Urine Nitrite NEGATIVE (NEGATIVE) Urine Bilirubin NEGATIVE (NEGATIVE) Urine Urobilinogen 0.2 (<2.0) EU/dL Ur Leukocyte Esterase NEGATIVE (NEGATIVE) SARS-CoV-2 RNA (ADITHYA) (NEGATIVE) Meds: Medications Generic Name Dose Route Start Last Admin Trade Name Freq PRN Reason Stop Dose Admin Sodium Chloride 1,000 mls @ 250 mls/hr 06/04/21 18:50 06/04/21 19:13 Normal Saline IV 06/04/21 22:49 250 mls/hr .Bolus ONE Administration Discontinued Medications Generic Name Dose Route Start Last Admin Trade Name Freq PRN Reason Stop Dose Admin Dexamethasone 6 mg 06/04/21 17:14 06/04/21 17:43 Dexamethasone 10 Mg/Ml Sdv IVPUSH 06/04/21 17:15 6 mg ONETIME ONE Administration Sodium Chloride 1,000 mls @ 999 mls/hr 06/04/21 17:14 06/04/21 17:43 Normal Saline IV 06/04/21 18:14 999 mls/hr .Bolus ONE Administration - Re-Assessments/Exams Free Text/Narrative Re-Assessment/Exam: 06/04/21 22:17 Patient creatinine did improve to 1.8 and likely some VENKAT prerenal. Patient is doing well on nasal cannula on 2 L 90 distress. Do not have any beds we would like to admit her here but again we have no beds available there are no beds available in the state we call the transfer center no other studies are 7 out of state Covid transfers. We spoke to the patient and she does not want to stay in the ER or be admitted anywhere else we can send her home home O2 at 2 L that she is comfortable do when she will be with her if things do get worse she states that she will return immediately. Departure - Departure Time of Disposition: 22:17 Condition: Good - Discharge Information *PRESCRIPTION DRUG MONITORING PROGRAM REVIEWED*: Not Applicable *COPY OF PRESCRIPTION DRUG MONITORING REPORT IN PATIENT WHIT: Not Applicable Critical Care Note - Critical Care Note Total Time (mins): 45 Comments: Critical Care Procedure Note Authorized and Performed by: Dr. Jaimes Total critical care time: Approximately Due to a high probability of clinically significant, life threatening deterioration, the patient required my highest level of preparedness to intervene emergently and I personally spent this critical care time directly and personally managing the patient. This critical care time included obtaining a history; examining the patient; pulse oximetry; ordering and review of studies; arranging urgent treatment with development of a management plan; evaluation of patient's response to treatment; frequent reassessment; and, discussions with other providers. This critical care time was performed to assess and manage the high probability of imminent, life-threatening deterioration that could result in multi-organ failure. It was exclusive of separately billable procedures and treating other patients and teaching time. Sepsis Event Note (ED) - Focused Exam Vital Signs: Vital Signs Temp Pulse Resp BP Pulse Ox 06/04/21 20:51 22 H 138/61 100 06/04/21 19:30 74 22 H 117/57 L 99 06/04/21 19:06 78 20 109/51 L 98 06/04/21 18:03 77 15 99/45 L 100 06/04/21 17:03 97.5 F 91 15 87/44 L 84 L 06/04/21 17:01 97.4 F 86 22 H 87/44 L 86 L
[2021-06-04] MEDS ORDERED: Dexamethasone 10 MG/ML SDV IVPUSH ONE (17:14)
[2021-06-04] MEDS ORDERED: Sodium Chloride 0.9% 1,000 ML IV ONE ×2 (17:14→18:50)
--- NOTE | 2021-06-04 17:46 | CR ---
INDICATION: COVID, low O2 saturations TECHNIQUE: Chest 1 view. COMPARISON: 03/12/2021 FINDINGS: Cardiovascular and mediastinum: Heart size and vasculature are normal in caliber and appearance. Mediastinum is within normal limits. Lungs and pleural space: Lungs are clear. No sign of infiltrate or mass. No sign of pleural effusion. No pneumothorax. Bones and soft tissues: Right shoulder arthroplasty. IMPRESSION: No acute pulmonary or cardiac abnormalities. Dictated by Darrel Vega MD @ 06/04/2021 5:46:08 PM (Electronically Signed)
[2021-06-04 17:56] LABS: BLOOD UREA NITROGEN,BUN 44 mg/dL (7.0-18.0); CHLORIDE,CL 104 mmol/L (98-107); GLUCOSE RANDOM 151 mg/dL (74-106); POTASSIUM,K 5.2 mmol/L (3.5-5.1); SODIUM,NA 139 mmol/L (136-145)
--- NOTE | 2021-06-04 19:47 | CT ---
HISTORY: Pneumonia. COVID infection. TECHNIQUE: CT chest without contrast. COMPARISON: CT chest 03/12/2021. FINDINGS: Lungs: Central airways are patent. Moderate patchy bilateral ground-glass opacities with lower lung predominance. Mild atelectasis in both lower lobes. Small calcified granuloma in the right upper lobe. No pleural effusion or pneumothorax. Mediastinum: Thoracic aorta is not dilated. Mild aortic atherosclerotic calcifications. Coronary artery calcifications. No pericardial effusion. Lymph nodes: No lymphadenopathy. Musculoskeletal: Right reverse total shoulder arthroplasty. Degenerative changes of the spine. Fusion hardware in the lower cervical spine. Upper abdomen: Vascular calcifications, less likely choledocholithiasis in the hilum of the liver. IMPRESSION: 1. Patchy bilateral airspace disease compatible with COVID pneumonia. 2. Mild atelectasis in both lower lobes. Please note that all CT scans at this facility use dose modulation, iterative reconstruction, and/or weight-based dosing when appropriate to reduce radiation dose to as low as reasonably achievable. Dictated by Orestes Roe MD @ 06/04/2021 7:45:39 PM (Electronically Signed)
[2021-06-04 21:01] LABS: CARBON DIOXIDE,CO2 21.3 mmol/L (21.0-32.0); POTASSIUM,K 4.7 mmol/L (3.5-5.1)
[2021-06-04 23:20] VITALS: BP 163/88; PULSE 77
== END 2021-06-04 23:20 | disposition home or self-care (01) ==
LOC: MW.ED 16:43
DX: U07.1 COVID-19 (principal); R09.02 Hypoxemia; I11.0 Hypertensive heart disease with heart failure; I50.9 Heart failure, unspecified; E78.00 Pure hypercholesterolemia, unspecified; J44.9 Chronic obstructive pulmonary disease, unspecified; K21.9 Gastro-esophageal reflux disease without esophagitis; M10.9 Gout, unspecified; E11.9 Type 2 diabetes mellitus without complications; Z88.1 Allergy status to other antibiotic agents; Z91.048 Other nonmedicinal substance allergy status; Z88.8 Allergy status to other drugs, medicaments and biological substances; Z79.01 Long term (current) use of anticoagulants; Z79.899 Other long term (current) drug therapy
CPT/HCPCS: 36415; 71045; 71250; 80048; 80053; 81003; 83605; 83735; 84484; 85025; 85379; 86140; 93005; 96374; 99291; J1100; J7030; U0002; 99285-25

== ENCOUNTER 2023-04-14 10:30 | Observation (INO) | payer MEDICARE, OTHER ==
[2023-04-14] MEDS ORDERED: Lactated Ringers 1,000 ML IV ONE (11:54)
[2023-04-14 12:02] LABS: BASOPHILS PERCENT AUTO 0.1 % (0.0-1.5); EOSINOPHILS ABSOLUTE AUTO 0.2 K/uL (0.0-0.7); EOSINOPHILS PERCENT AUTO 2.2 % (0.0-7.0); HEMATOCRIT 24.7 % (36.0-46.0); HEMOGLOBIN 7.9 g/dL (12.0-16.0); LYMPHOCYTES ABSOLUTE AUTO 2.3 K/uL (0.6-2.4); MEAN CORPUSCULAR HEMOGLOBIN 31.3 pg (27.0-32.0); MONOCYTES ABSOLUTE AUTO 0.8 K/uL (0.0-0.8); MONOCYTES PERCENT AUTO 9.4 % (0.0-15.0); NEUTROPHILS ABSOLUTE AUTO 5.6 K/uL (1.4-5.7); NEUTROPHILS PERCENT AUTO 62.3 % (48.0-80.0); NRBC ABSOLUTE 0 K/uL; PLATELET COUNT,PLT 188 K/uL (150-400); RED BLOOD CELL COUNT 2.52 M/uL (4.30-5.90); WHITE BLOOD CELL COUNT,WBC 8.95 K/uL (4.0-11.0)
[2023-04-14 12:15] LABS: INR 1.13 (0.86-1.11)
[2023-04-14 12:26] LABS: A/G RATIO 0.8 (0.9-1.6); BILIRUBIN TOTAL 1.7 mg/dL (0.2-1.0); CALCIUM 8.4 mg/dL (8.5-10.1); CARBON DIOXIDE,CO2 27.4 mmol/L (21.0-32.0); CREATININE 2.1 mg/dL (0.6-1.0); EST CRCL DRUG DOSING (CG) 17.14 mL/min; POTASSIUM,K 4.7 mmol/L (3.5-5.1); PROTEIN TOTAL,TP 6.6 g/dL (6.4-8.2)
[2023-04-14 12:28] LABS: LACTIC ACID 1.1 mmol/L (0.4-2.0)
[2023-04-14] MEDS ORDERED: Sodium Chloride 0.9% 2.5 ML Syringe FLUSH PRN (15:42)
[2023-04-14] MEDS ORDERED: Ondansetron 4 MG/2 ML SDV IVPUSH PRN (15:42)
[2023-04-14] MEDS ORDERED: Sodium Chloride 0.9% 10 ML Syringe FLUSH PRN (15:42)
[2023-04-14] MEDS ORDERED: Glucagon,Human Recombinant 1 MG Vial IM PRN (16:12)
[2023-04-14] MEDS ORDERED: 50% Dextrose in Water 50 ML Syringe IVPUSH PRN (16:12)
[2023-04-14] MEDS: Acetaminophen 325 MG Tab PO SCH ×2 (16:55→20:48)
[2023-04-14] MEDS: Pantoprazole 40 MG in Sodium Chloride 0.9% 10 ML IVPUSH SCH ×2 (16:58→20:48)
[2023-04-14] MEDS: Insulin Aspart 100 Units/ML 3 ML Pen SUBCUT SCH (17:00)
[2023-04-14] MEDS: oxyCODONE 5 MG Tab PO PRN (20:49)
[2023-04-14 22:02] LABS: HEMATOCRIT 29.8 % (36.0-46.0); HEMOGLOBIN 9.7 g/dL (12.0-16.0)
[2023-04-15] MEDS: Acetaminophen 325 MG Tab PO SCH ×3 (03:18→15:26)
[2023-04-15] MEDS: oxyCODONE 5 MG Tab PO PRN ×2 (03:18→11:54)
[2023-04-15 05:59] LABS: BASOPHILS PERCENT AUTO 0.2 % (0.0-1.5); EOSINOPHILS ABSOLUTE AUTO 0.3 K/uL (0.0-0.7); EOSINOPHILS PERCENT AUTO 5.7 % (0.0-7.0); HEMATOCRIT 29.5 % (36.0-46.0); HEMOGLOBIN 9.6 g/dL (12.0-16.0); LYMPHOCYTES PERCENT AUTO 36.6 % (16.0-40.0); MEAN CORPUSCULAR HEMOGLOBIN 29.8 pg (27.0-32.0); MEAN CORPUSCULAR HGB CONC 32.5 g/dL (31.0-37.0); MEAN CORPUSCULAR VOLUME 91.6 fL (80.0-98.0); MONOCYTES ABSOLUTE AUTO 0.6 K/uL (0.0-0.8); MONOCYTES PERCENT AUTO 11.4 % (0.0-15.0); NEUTROPHILS ABSOLUTE AUTO 2.5 K/uL (1.4-5.7); NEUTROPHILS PERCENT AUTO 46.1 % (48.0-80.0); NRBC ABSOLUTE 0 K/uL; PLATELET COUNT,PLT 178 K/uL (150-400); RED BLOOD CELL COUNT 3.22 M/uL (4.30-5.90); WHITE BLOOD CELL COUNT,WBC 5.44 K/uL (4.0-11.0)
[2023-04-15 06:16] LABS: CALCIUM 8.3 mg/dL (8.5-10.1); CARBON DIOXIDE,CO2 29.4 mmol/L (21.0-32.0); CREATININE 0.9 mg/dL (0.6-1.0); EST CRCL DRUG DOSING (CG) 39.99 mL/min; MAGNESIUM 1.7 mg/dL (1.8-2.4); POTASSIUM,K 4.4 mmol/L (3.5-5.1)
[2023-04-15] MEDS: Insulin Aspart 100 Units/ML 3 ML Pen SUBCUT SCH ×2 (07:36→12:23)
[2023-04-15] MEDS ORDERED: Pantoprazole 40 MG Vial ONE (08:44)
[2023-04-15] MEDS: Pantoprazole 40 MG in Sodium Chloride 0.9% 10 ML IVPUSH SCH (09:37)
[2023-04-15] MEDS ORDERED: DULoxetine 30 MG Cap PO SCH (09:45)
[2023-04-15] MEDS ORDERED: Folic Acid 1 MG Tab PO SCH (09:45)
[2023-04-15 11:41] VITALS: PULSE 86
[2023-04-15 12:07] LABS: HEMATOCRIT 30.8 % (36.0-46.0); HEMOGLOBIN 9.9 g/dL (12.0-16.0)
[2023-04-15 15:40] VITALS: BP 153/84
[2023-04-15] MEDS ORDERED: Gabapentin 100 MG Cap PO SCH (21:00)
[2023-04-16] MEDS ORDERED: atorvaSTATin 40 MG Tab PO SCH (09:00)
[2023-04-16] MEDS ORDERED: Cholecalciferol (Vitamin D3) 25 MCG Tab PO SCH (09:00)
[2023-04-16] MEDS ORDERED: Ascorbic Acid 500 MG Tab PO SCH (09:00)
== END 2023-04-15 17:00 | disposition home or self-care (01) ==
LOC: MW.ED 10:30 → MW.MS 15:26
PROVIDERS: ADMIT Internal Medicine; ATTEND Internal Medicine
DX: I95.9 Hypotension, unspecified (principal); S42.292K Other displaced fracture of upper end of left humerus, subsequent encounter for fracture with nonunion; I26.94 Multiple subsegmental thrombotic pulmonary emboli without acute cor pulmonale; I50.22 Chronic systolic (congestive) heart failure; M72.0 Palmar fascial fibromatosis [Dupuytren]; E78.49 Other hyperlipidemia; I25.10 Atherosclerotic heart disease of native coronary artery without angina pectoris; I48.0 Paroxysmal atrial fibrillation; E78.00 Pure hypercholesterolemia, unspecified; F32.A Depression, unspecified; F41.9 Anxiety disorder, unspecified; D64.9 Anemia, unspecified; J44.9 Chronic obstructive pulmonary disease, unspecified; K21.9 Gastro-esophageal reflux disease without esophagitis; E11.9 Type 2 diabetes mellitus without complications; M10.9 Gout, unspecified; G89.29 Other chronic pain; M06.9 Rheumatoid arthritis, unspecified; M54.9 Dorsalgia, unspecified; Z20.822 Contact with and (suspected) exposure to COVID-19; Z79.01 Long term (current) use of anticoagulants; Z88.1 Allergy status to other antibiotic agents; Z79.899 Other long term (current) drug therapy; Z88.8 Allergy status to other drugs, medicaments and biological substances; Z85.3 Personal history of malignant neoplasm of breast; W01.0XXA Fall on same level from slipping, tripping and stumbling without subsequent striking against object, initial encounter; Z86.711 Personal history of pulmonary embolism
CPT/HCPCS: 36415; 71045; 73060; 80048; 80053; 83605; 83735; 83880; 84484; 85014; 85018; 85025; 85610; 87040; 87651; 93005; 97161; A9270; C9113; J3490; J7120; P9016; U0002; 36430; 93010; 96360; 99285; 99285-25

== ENCOUNTER 2023-09-15 10:57 | Emergency (ER) | payer MEDICARE, OTHER ==
[2023-09-15 12:44] LABS: BASOPHILS ABSOLUTE AUTO 0.01 K/uL (0.00-0.20); BASOPHILS PERCENT AUTO 0.2 % (0.0-1.0); EOSINOPHILS ABSOLUTE AUTO 0.19 K/uL (0.00-0.45); EOSINOPHILS PERCENT AUTO 3.3 % (0.0-6.0); HEMATOCRIT 35.5 % (37.0-47.0); IMMATURE GRAN ABSOLUTE AUTO 0.01 K/uL (0.00-0.05); IMMATURE GRAN PERCENT AUTO 0.2 % (0.0-0.4); LYMPHOCYTES ABSOLUTE AUTO 3.18 K/uL (1.00-4.80); LYMPHOCYTES PERCENT AUTO 55.6 % (24.0-44.0); MEAN CORPUSCULAR HEMOGLOBIN 31.6 pg (28.0-32.0); MEAN CORPUSCULAR HGB CONC 33.8 g/dL (32.0-36.0); MEAN CORPUSCULAR VOLUME 93.4 fL (83.0-99.0); MEAN PLATELET VOLUME 10.1 fL (9.4-12.3); MONOCYTES ABSOLUTE AUTO 0.34 K/uL (0.00-0.80); MONOCYTES PERCENT AUTO 5.9 % (0.0-8.0); NEUTROPHILS ABSOLUTE AUTO 1.99 K/uL (1.80-7.70); NEUTROPHILS PERCENT AUTO 34.8 % (41.0-71.0); PLATELET COUNT,PLT 199 K/uL (150-400); WHITE BLOOD CELL COUNT,WBC 5.72 K/uL (3.9-11.3)
[2023-09-15] MEDS ORDERED: Sodium Chloride 0.9% 250 ML IV STA (13:06)
[2023-09-15 13:13] LABS: ALBUMIN 3.7 g/dL (3.4-5.0); BILIRUBIN TOTAL 1.3 mg/dL (0.2-1.0); CALCIUM 9.7 mg/dL (8.5-10.1); CARBON DIOXIDE,CO2 29.6 mmol/L (21.0-32.0); CREATININE 0.7 mg/dL (0.6-1.0); EST CRCL DRUG DOSING (CG) 51.41 mL/min; POTASSIUM,K 4.7 mmol/L (3.5-5.1); PROTEIN TOTAL,TP 7.3 g/dL (6.4-8.2)
[2023-09-15 17:04] VITALS: BP 167/62; PULSE 64
== END 2023-09-15 14:55 | disposition home or self-care (01) ==
LOC: MW.ED 10:57
DX: R04.0 Epistaxis (principal); R42 Dizziness and giddiness; I11.0 Hypertensive heart disease with heart failure; I50.9 Heart failure, unspecified; E78.00 Pure hypercholesterolemia, unspecified; E11.9 Type 2 diabetes mellitus without complications; J44.9 Chronic obstructive pulmonary disease, unspecified; E78.5 Hyperlipidemia, unspecified; Z79.01 Long term (current) use of anticoagulants; Z79.899 Other long term (current) drug therapy; Z88.1 Allergy status to other antibiotic agents; Z88.8 Allergy status to other drugs, medicaments and biological substances; Z91.048 Other nonmedicinal substance allergy status
CPT/HCPCS: 36415; 80053; 82947; 84484; 85025; 86850; 86900; 86901; 99284; J7050